=== PATIENT | female | born 1985 | race African-American/Black ===

== ENCOUNTER 2020-11-26 12:18 | Emergency (ER) | payer OTHER, SELFPAY ==
--- NOTE | ~2020-11-26 | XR_ITS ---
XR hand RT min 3V DATE: 11/26/2020 14:26 INDICATION: Redness, swelling, pain of right first digit for 4 days. No known injury. TECHNIQUE: 3 views of right hand COMPARISON: None FINDINGS: No fracture or dislocation, periosteal reaction or bone destruction. No radiopaque foreign body is detected. IMPRESSION: No significant bony abnormality Reviewed, dictated and finalized at location A.
[2020-11-26 12:43] VITALS: BP 119/78; PULSE 66; RESP 18; TEMP 37.2; O2SAT 99
[2020-11-26] MEDS: HYDROcodone/acetaminophen (*CRX) 5-325 MG TABLET 1 TAB PO (14:45)
--- NOTE | 2020-11-26 15:37 | ED.GENADULT ---
HPI - General Adult General Chief complaint: Skin/Abscess/Foreign Body Stated complaint: infection to right thumb Time Seen by Provider: 11/26/20 12:46 Source: patient Mode of arrival: ambulatory Limitations: no limitations History of Present Illness HPI narrative: Patient presents with chief complaint of swelling and erythema to the distal aspect of her right thumb that began on Friday. Patient reports that she has not had 1 of these infections in about any year but for the 4 years prior to that she would have them repeatedly. Patient denies a known history of MRSA. Patient denies any fever, chills, nausea, vomiting, diarrhea. Patient denies any allergies to any antibiotics. Related Data Allergies Allergy/AdvReac Type Severity Reaction Status Date / Time No Known Allergies Allergy Verified 11/26/20 12:48 Review of Systems Review of Systems: CONSTITUTIONAL: Denies fever, chills, or sweats. EYES: Denies visual changes, redness, or discharge. ENT: Denies rhinorrhea, congestion, sore throat, or otalgia. CARDIOVASCULAR: Denies chest pain, palpitations, or edema. RESPIRATORY: Denies cough or dyspnea. GASTROINTESTINAL: Denies abdominal pain, nausea, vomiting, or diarrhea. GENITOURINARY: Denies dysuria or hematuria. SKIN: Reports swelling denies rash or itching. MUSCULOSKELETAL: Denies back pain, joint pain, or myalgia. NEUROLOGIC: Denies headache, numbness, dizziness, or weakness. PSYCHIATRIC: Denies anxiety or depression. Exam Narrative: GENERAL: Well-appearing, well-nourished, and in no acute distress. HEAD: Normocephalic, atraumatic. EYES: PERRLA and EOMI. CHEST: Clear to auscultation. No respiratory distress. No wheezes rales or rhonchi HEART: Regular rate and rhythm. No murmur heard. Normal peripheral pulses. EXTREMITIES: Normal range of motion. No edema. SKIN: Paronychia noted to the nailbed of the right first digit. There is also swelling around the thumb into the pad. Patient able to flex and extend the interphalangeal joint and proximal phalangeal joint. warm, dry, no rash. NEURO: No focal deficits. Alert and oriented x3. PSYCH: Normal mood and affect. Course Vital Signs Vital signs: Vital Signs Temperature 98.9 F 11/26/20 12:43 Pulse Rate 66 11/26/20 12:43 Respiratory Rate 18 11/26/20 12:43 Blood Pressure 119/78 11/26/20 12:43 Pulse Oximetry 99 11/26/20 12:43 Temperature 98.9 F 11/26/20 12:43 Pulse Rate 66 11/26/20 12:43 Respiratory Rate 18 11/26/20 12:43 Blood Pressure 119/78 11/26/20 12:43 Pulse Oximetry 99 11/26/20 12:43 Procedures Abscess I/D hand: Side (if applicable): right Local Anesthetic: lidocaine 1% Amount of anesthesia used (mL): 1 Technique: incised with #11 blade Irrigation: Yes Packing used?: none I&D Results: Pus Abcess I&D Additional Comments: It seemed that there was also a secondary abscess near the pad of the right thumb however upon attempting incision and drainage there was no pus expressed. There is induration in the area. Medical Decision Making MDM Narrative Medical decision making narrative: Discussed with Dr. Becerra. He states to refer the patient to plastics to make sure she does not have a pulp infection and to discharge her on Augmentin. Patient has been updated on her Tdap. X-ray does not show any degeneration of the bone. Patient is able to flex and extend at the joints. Patient was given [place] for pain control as she states the pain is intense. Patient does not have any signs of fever or systemic infection. Wound cultureD. Vital Signs Vital Signs: Vital Signs Temperature 98.9 F 11/26/20 12:43 Pulse Rate 66 11/26/20 12:43 Respiratory Rate 11/26/20 12:43 Blood Pressure 119/78 11/26/20 12:43 Pulse Oximetry 99 11/26/20 12:43 Temperature 98.9 F 11/26/20 12:43 Pulse Rate 66 11/26/20 12:43 Respiratory Rate 11/26/20 12:43 Blood Pressure 119/78 09
[2020-11-26 15:57] VITALS: BP 119/78; PULSE 65; TEMP 37.2; O2SAT 100
[2020-11-26] MEDS: TETANUS,DIPHTHERIA,AC PERTUSSIS ADULT (0.5 ML) BOOSTRIX IM (16:06)
[2020-11-26 16:15] VITALS: BP 119/78; PULSE 65; RESP 18; TEMP 37.2; O2SAT 100
== END 2020-11-26 16:15 | disposition home or self-care (01) ==
PROVIDERS: Emergency Provider Family Medicine; PCP Emergency Medicine
DX: L03.011 Cellulitis of right finger (principal); Z23 Encounter for immunization
CPT/HCPCS: 26010; 73130; 87070; 87077; 87186; 87205; 90471; 90715; 99283; A9270

== ENCOUNTER 2021-12-18 15:00 | Inpatient (IN) | payer OTHER, SELFPAY ==
[2021-12-18] VITALS (9 sets, daily range): BP systolic 98–123; BP diastolic 54–76; PULSE 75–98; RESP 16; TEMP 37.1; O2SAT 94–100; BMI 21.7
--- NOTE | ~2021-12-18 | CT_ITS ---
EXAMINATION: CT abdomen pelvis w con DATE: 12/18/2021 19:11 INDICATION: back pain, UTI TECHNIQUE: Computed tomography (CT) of the abdomen and pelvis was performed with 100 mL Omnipaque-350 intravenous contrast. Automated exposure control and iterative reconstruction technique were employe d. The dose-length product was 278.17 mGy-cm. COMPARISON: None. FINDINGS: Lower thorax: Unremarkable Liver: Normal. Biliary/Gallbladder: Gallbladder is normal. No bile duct dilation. Pancreas: No mass or duct dilation. Spleen: Normal. Adrenals:No mass. Kidneys: Irregular 2.7 x 1.4 x 1.8 cm cystic structure in the right upper pole with adjacent calcific ation or surgical clips and mild adjacent inflammatory change. Right lower pole AML. Left middle pole cyst. The proximal ureters are poorly visualized. GI tract: No small or large bowel dilation. Normal appendix. Mesentery/Peritoneum: No ascites, mass, or free air. Retroperitoneum: No mass. Pelvis: Bladder wall thickening in a partially distended bladder. Distal ureters are poorly visualize d. Mild volume free pelvic fluid. Remaining pelvic organs are within normal limits. Soft Tissues: Soft tissues and body wall unremarkable. Bones: No acute osseous finding. IMPRESSION: 2.7 cm cystic right upper pole lesion, may represent early renal abscess, in the appropriate clinical context. Lateral thickening may be due to lack of distention or cystitis. Reviewed, dictated and finalized at location K. IMPRESSION: 2.7 cm cystic right upper pole lesion, may represent early renal abscess, in th e appropriate clinical context. Lateral thickening may be due to lack of disten tion or cystitis.
--- NOTE | ~2021-12-18 | US_ITS ---
EXAMINATION: US pelvic complete w TV DATE: 12/18/2021 18:34 INDICATION: vaginal bleeding TECHNIQUE: Multiple transabdominal and endovaginal sonographic images of the pelvis were obtained. COMPARISON: None. FINDINGS: Uterus: 8.5 x 3.4 x 6.6 cm. Retroflexed uterus. Endometrial complex measures 2 mm. Right Ovary: 3.7 x 1.7 x 3.5 cm. Vascular flow is present. 1.1 cm simple cyst. Left Ovary: 2.5 x 1.2 x 2.2 cm. Vascular flow is present. There is minimal free fluid in the pelvis. IMPRESSION: Normal pelvic sonogram findings. Reviewed, dictated and finalized at location K.
--- NOTE | ~2021-12-18 | CT_ITS ---
EXAMINATION: CT abdomen pelvis w con DATE: 12/20/2021 07:51 INDICATION: Right kidney abscess. TECHNIQUE: Computed tomography (CT) of the abdomen and pelvis was performed with 100 mL Omnipaque 350 intravenous contrast. Automated exposure control and iterative reconstruction technique were employe d. The dose-length product was 239.98 mGy-cm. COMPARISON: CT abdomen and pelvis 12/18/2021 FINDINGS: The visualized portions of the lung bases demonstrate mild atelectasis. There is a small ri ght pleural effusion. The heart size is normal. No pericardial effusion. The liver is normal. The gal lbladder is distended, likely secondary to fasting. The spleen, pancreas, and adrenal glands are norm al. There is approximately 3 stones in right kidney measuring up to 4 mm. There is a 2.6 x 1.3 cm cys t with hypodense margin in right kidney, consistent with abscess. There is stranding in the adjacent perinephric fat. There are simple cysts in the kidneys measuring up to 10 mm on the left. There are n o dilated loops of bowel. The appendix is not visualized. There is physiologic fluid in the pelvis. T here is mild lumbar spondylosis. IMPRESSION: 1. Stable 2.6 cm cystic mass in right kidney, consistent with abscess. 2. Nonobstructing right kidney stones. Reviewed, dictated and finalized at location A.
--- NOTE | ~2021-12-18 | CT_ITS ---
EXAMINATION: CT guide absc cath placement DATE: 12/21/2021 15:28 INDICATION: Right kidney abscess. TECHNIQUE: The procedure including the risks, benefits, and alternatives was discussed with the patie nt. Risks discussed included bleeding and infection. The patient understood the risks and benefits an d agreed to proceed. The patient was confirmed to be receiving appropriate antibiotic coverage. The skin overlying the abdomen was prepped and draped in usual sterile fashion. Anesthetic was administe red with 1% lidocaine subcutaneously. An 18 gauge trochar needle was inserted into the right kidney a bscess with CT guidance. The needle was exchanged over a wire for 6 [place] and 8 [place] dilators and then for an 8.5 [place] pigtail catheter. The catheter was stitched to the skin, and a sterile dressin g was applied. The mA was adjusted according to patient size. Iterative reconstruction technique was employed. The dose-length product was 178.30 mGy-cm. There were no immediate complications. FINDINGS: CT images demonstrate the catheter within the right kidney abscess. 4 mL fluid was aspirate d for testing. IMPRESSION: 1. Successful CT-guided right kidney abscess drainage. 2. 4 mL opaque, urias fluid was sent for aerobic and anaerobic cultures. Reviewed, dictated and finalized at location A.
--- NOTE | ~2021-12-18 | XR_ITS ---
EXAMINATION: XR chest 2V Exam Date/Time: 12/18/2021 19:08 CDT HISTORY: left shoulder pain, ACS rule out. no cardiac hx Comparison: None available. RESULT: Lines, tubes, and devices: None. Lungs and pleura: Clear. Cardiomediastinal silhouette: Normal. Other: No acute osseous or upper abdominal finding. IMPRESSION: No acute cardiopulmonary process. Reviewed, dictated and finalized at location K.
[2021-12-18 15:40] LABS: Basophils Percent Auto 0.2 % (0.2-1.2); Eosinophils Absolute Auto 0.1 K/mm3 (0-0.3); Eosinophils Percent Auto 0.6 % (0-4.4); Immature Granulocyte Absolute 0.03 K/mm3 (0.00-0.031); Immature Granulocyte Percent A 0.3 % (0-0.5); Lymphocytes Absolute Auto 0.89 K/mm3 (0.9-3.2); Lymphocytes Percent Auto 10.4 % (18.3-44.2); Mean Corpuscular HGB Conc 32.4 g/dl (32-36); Mean Corpuscular Hemoglobin 27.5 pg (26-34); Mean Corpuscular Volume 84.9 fl (80-100); Mean Platelet Volume 11.1 fl (7.4-10.4); Monocytes Absolute Auto 0.7 K/mm3 (0.1-0.6); Monocytes Percent Auto 8.6 % (2.6-8.5); Neutrophils Absolute Auto 6.9 K/mm3 (1.3-6.7); Neutrophils Percent Auto 79.9 % (45.5-73.1); Platelet Count Result 205 k/mm3 (150-375); Red Blood Count 4.36 M/mm3 (4.2-5.4); Red Cell Distribution Width 13.1 % (11.5-14.5); White Blood Count 8.6 K/mm3 (4.5-10.0)
[2021-12-18 15:49] LABS: Alanine Aminotransferase 18 U/L (6-35); Alkaline Phosphatase 53 U/L (38-126); Anion Gap 7 mmol/L (8-16); Aspartate Amino Transferase 29 U/L (14-36); Bilirubin,Total 0.3 mg/dL (0.2-1.3); Blood Urea Nitrogen 13 mg/dL (7-17); Calcium 8.5 mg/dL (8.4-10.2); Carbon Dioxide 24 mmol/L (22-30); Chloride 106 mmol/L (98-107); Estimated CRCL calculation 97 ml/min; Estimated Glomerular Filt Rate > 60; Glucose 99 mg/dL (65-110); Lipase 118 U/L (23-300); Potassium 4.2 mmol/L (3.4-5.0); Sodium 137 mmol/L (137-145)
[2021-12-18 16:01] LABS: Add Urine Microscopic? YES; Appearance Urine Cloudy (Clear); Bacteria Urine Trace /hpf; Bilirubin Urine Negative (Negative); Blood Urine 2+ (Negative); Color Urine Yellow (Yellow); Glucose Urine UA Negative (Negative); Ketones Urine Trace mg/dL (Negative); Leukocyte Esterase Ur 2+ LEU/UL (Negative); Mucus Urine Rare /lpf; Nitrate Urine Positive (Negative); Protein Urine Negative (Negative); Squamous Epithelial Cell Urine Occasional /hpf (Few); Urobilinogen Urine Negative mg/dL (<2.0); WBC Urine >75 /hpf
[2021-12-18 17:17] LABS: Pregnancy On Board Control Positive; Urine Pregnancy Test Negative
--- NOTE | 2021-12-18 17:43 | ED.ABDPAIN ---
HPI - Abdominal Pain General Chief Complaint: Abdominal Pain Stated Complaint: abd pain Time Seen by Provider: 12/18/21 17:43 Source: patient Mode of arrival: ambulatory Limitations: no limitations History of Present Illness HPI narrative: Patient is a 36-year-old female presenting to the emergency department for evaluation of right lower quadrant abdominal pain with radiation up into the left chest and posterior left shoulder. Patient states that she has been uncomfortable throughout the day with significant back pain of the upper and lower spine. She reports intermittent right lower quadrant pain as well as well as urinary frequency. She denies dysuria or hematuria. Patient reports subjective fever and chills. She denies nausea, vomiting, frontal chest pain, palpitations, shortness of breath, cough. Patient denies any rhinorrhea or congestion. She denies history of previous abdominal surgeries or illnesses. She does have a history of section in 2018. Patient denies any aggravating or relieving symptoms. Pain has been present over the past 48 hours and worsening. Patient does have a history of urinary tract infection in the past. She denies vaginal discharge or bleeding. Related Data Allergies Allergy/AdvReac Type Severity Reaction Status Date / Time No Known Allergies Allergy Verified 11/26/20 12:48 Review of Systems Review of Systems: CONSTITUTIONAL: Reports fever and chills EYES: Denies visual changes, redness, or discharge. ENT: Denies rhinorrhea, congestion, sore throat, or otalgia. CARDIOVASCULAR: Denies chest pain, palpitations, or edema. RESPIRATORY: Denies cough or dyspnea. GASTROINTESTINAL: Reports right lower quadrant abdominal pain, denies nausea or vomiting, denies diarrhea GENITOURINARY: Denies dysuria or hematuria. SKIN: Denies rash or itching. MUSCULOSKELETAL: Reports back pain in the upper and lower back, denies other joint pain, or myalgia. NEUROLOGIC: Denies headache, numbness, or weakness. [facility] Social History Social History Smoking status: Never smoker Alcohol intake: never Substance use: never Living arrangements: with family Gender identity (if verbalized by the patient): Female Exam Narrative: GENERAL: Awake, alert, conversant HEAD: Normocephalic, atraumatic. EYES: PERRLA and EOMI. ENT: Nares clear, no rhinorrhea or epistaxis. Mucous membranes moist. NECK: Supple. No midline cervical pain. CHEST: No respiratory distress, breathing even and non labored HEART: Regular rate, sinus rhythm ABDOMEN:Non distended, mildly tender in the right and left lower quadrant without rebound, rigidity or guarding. Bilateral flank tenderness. Thorax: Midline thoracic and lumbar pain EXTREMITIES: Normal range of motion. No edema. SKIN: Warm, dry, no rash. NEURO:No focal deficits. Alert and oriented x3. Finger to nose intact bilaterally. EOMs intact without nystagmus. No facial droop/asymmetry noted bilaterally. Grimace intact. Intact sensation in face. Hearing intact bilaterally. Shoulder shrug intact. Strength 5/5 bilateral upper extremities. Strength 5/5 bilateral lower extremities. Reflexes 2+ patellar. Heel to plaza intact bilaterally. Ambulatory with a narrow base, steady gait, no ataxia. Course Vital Signs Vital signs: Vital Signs Temperature 37.1 C 12/18/21 15:22 Pulse Rate 98 12/18/21 15:22 Respiratory Rate 16 12/18/21 15:22 Blood Pressure 123/73 12/18/21 15:22 Pulse Oximetry 100 12/18/21 15:22 Temperature 37.1 C 12/18/21 15:22 Pulse Rate 98 12/18/21 15:22 Respiratory Rate 16 12/18/21 15:22 Blood Pressure 123/73 12/18/21 15:22 Pulse Oximetry 100 12/18/21 15:22 MDM - Abdominal Pain MDM Narrative Medical decision making narrative: Patient presenting for evaluation of back pain, no urinary symptoms on review of systems. Vital signs are stable. Patient does have pain throughout
[2021-12-18 19:10] LABS: Troponin I < 0.012 ng/mL (0.000-0.034)
[2021-12-18] MEDS: ACETAMINOPHEN 500 MG TABLET 1000 MG PO (19:27)
[2021-12-18] MEDS: MORPHINE SULFATE (*CRX) 4 MG/ML INJ IV PUSH (19:28)
[2021-12-18] MEDS: SODIUM CHLORIDE 0.9% IV 1,000 ML 999 ML IV CONT (19:31)
[2021-12-18] MEDS: ONDANSETRON INJ 4 MG/2 ML VIAL IV PUSH (19:31)
--- NOTE | 2021-12-18 20:08 | PM.IMHP ---
H&P: HPI History of Present Illness Date/Time: 12/18/21 20:08 Chief Complaint: 36 years old female with no significant past medical history presented to the hospital with right abdominal pain dull in nature worsening gradually radiating to the shoulder and radiating to the back associated with dysuria and frequency patient denies hematuria patient also complained of intermittent chills at the ER CT scan of the abdomen was done shows 2.7 right kidney cyst concerning for abscess urology was consulted patient was started on IV antibiotics patient was admitted to the hospital for further evaluation and treatment Review of Systems Review of Systems: Twelve system review was done negative except [facility] Social History Social History Smoking status: Never smoker Alcohol intake: never Substance use: never Living arrangements: with family Gender identity (if verbalized by the patient): Female Meds Home Medications and Allergies Home Medications Medication Instructions Recorded Confirmed Type amoxicillin 875 mg-potassium 1 tablet PO Q12H #20 tabs 11/26/20 Rx clavulanate 125 mg tablet (Augmentin) hydrocodone 5 mg-acetaminophen 325 1 tablet PO Q8H PRN pain #10 tabs 11/26/20 Rx mg tablet Allergies Allergy/AdvReac Type Severity Reaction Status Date / Time No Known Allergies Allergy Verified 11/26/20 12:48 Vital Signs Vital Signs - 24 hr 12/18/21 15:22 Temperature 98.7 F Pulse Rate 98 Respiratory Rate 16 Blood Pressure 123/73 Pulse Oximetry 100 Exam Narrative: GENERAL: Well appearing, well-nourished, non-toxic, in no acute distress. HEAD: Normocephalic, atraumatic. NECK: Supple. No adenopathy, no masses. RESPIRATORY: Airway patent, respirations nonlabored. Clear to auscultation bilaterally, no rales, rhonchi, wheezing. CARDIOVASCULAR: Regular rate and rhythm without murmurs, rubs, or gallops. Peripheral pulses 2+ and equal bilaterally. ABDOMINAL: Soft, nontender, nondistended, no hepatosplenomegaly. Normoactive BS. MUSCULOSKELETAL: Moves all extremities. Strength/ROM intact without gross deformities or TTP. No edema. No calf tenderness. No chest wall tenderness palpation. SKIN: Warm, dry, normal color. No rashes. NEURO: A&O X3. Moves all extremities. PSYCHIATRIC: Appropriate mood and affect. Normal interaction. H&P: Results Labs Labs: Short CBC 12/18/21 Range/Units 15:34 WBC 8.6 (4.5-10.0) K/mm3 Hgb 12.0 (12.0-15.0) g/dL Hct 37.0 (37.0-47.0) % Plt Count 205 (150-375) k/mm3 BMP 12/18/21 15:34 Sodium 137 Potassium 4.2 Chloride 106 Carbon Dioxide 24 BUN 13 Creatinine 0.60 L Glucose 99 Calcium 8.5 Cardiac Enzymes 12/18/21 Range/Units 15:33 Troponin I < 0.012 (0.000-0.034) ng/mL Liver Function 12/18/21 Range/Units 15:34 Total Bilirubin 0.3 (0.2-1.3) mg/dL AST 29 (14-36) U/L ALT 18 (6-35) U/L Alkaline Phosphatase 53 (38-126) U/L Albumin 4.0 (3.5-5.1) g/dL Urine 12/18/21 Range/Units 15:41 Urine Color Yellow (Yellow) Urine Appearance Cloudy H (Clear) Urine pH 5.0 (5.0-9.0) Ur Specific [place] 1.020 (1.001-1.035) Urine Protein Negative (Negative) mg/dL Urine Glucose (UA) Negative (Negative) mg/dL Assessment and Plan Assessment and plan (1) UTI (urinary tract infection): Code(s): N39.0 - Urinary tract infection, site not specified Status: Acute Assessment and Plan: Will give IV Zosyn follow culture results Reviewed CBC CMP UA (2) Kidney abscess: Code(s): N15.1 - Renal and perinephric abscess Status: Acute Assessment and Plan: Urology consult NPO after midnight except meds (3) Abdominal pain: Code(s): R10.9 - Unspecified abdominal pain Status: Acute Assessment and Plan: Pain control (4) Mechanical deep vein thrombosis (DVT) prophylaxis
[2021-12-18 21:47] LABS: Amphetamine Screen Urine Negative (Negative); Barbiturate Screen Urine Negative (Negative); Benzodiazepines Screen Urine Negative (Negative); Cannabinoid Screen Urine Negative (Negative); Cocaine Screen Urine Negative (Negative); Methadone Screen Urine Negative (Negative); Opiate Screen Urine Negative (Negative); Phencyclidine Screen Urine Negative (Negative)
--- NOTE | 2021-12-18 23:40 | ADMGEN ---
This patient, Palmira Todd, was admitted to 2 Medical Room 250-01. Patient/family oriented to hospital policies and general routines including ID bracelet, bed and alarms, visiting hours, pain management, procedures, bathroom and other care routines, personal items, smoking policy, room service/diet, and visiting hours. Information on how to activate the Rapid Response Team has been discussed. Patient/Family are encouraged to report perceived risks to care and to ask questions if they do not understand what they are told or what they should do.
[2021-12-19] VITALS (9 sets, daily range): BP systolic 103–119; BP diastolic 59–70; PULSE 69–98; RESP 16–21; TEMP 36.6–37.9; O2SAT 94–100
[2021-12-19] MEDS: SODIUM CHLORIDE 0.9% IV 1,000 ML 100 ML IV CONT ×3 (00:09→22:24)
[2021-12-19] MEDS: HYDROcodone/acetaminophen (*CRX) 5-325 MG TABLET 1 TAB PO ×2 (05:18→14:40)
[2021-12-19 05:39] LABS: Alanine Aminotransferase 16 U/L (6-35); Albumin Level 3.5 g/dL (3.5-5.1); Alkaline Phosphatase 54 U/L (38-126); Anion Gap 9 mmol/L (8-16); Aspartate Amino Transferase 22 U/L (14-36); Bilirubin,Total 0.5 mg/dL (0.2-1.3); Blood Urea Nitrogen 10 mg/dL (7-17); Calcium 8.2 mg/dL (8.4-10.2); Carbon Dioxide 20 mmol/L (22-30); Chloride 108 mmol/L (98-107); Estimated CRCL calculation 97 ml/min; Estimated Glomerular Filt Rate > 60; Glucose 75 mg/dL (65-110); Potassium 3.8 mmol/L (3.4-5.0); Sodium 137 mmol/L (137-145)
--- NOTE | 2021-12-19 08:08 | WPDURCON ---
Assessment and Plan Assessment and plan (1) Pyelonephritis: Code(s): N12 - Tubulo-interstitial nephritis, not specified as acute or chronic Status: Acute (2) Kidney abscess: Code(s): N15.1 - Renal and perinephric abscess Status: Acute (3) UTI (urinary tract infection): Code(s): N39.0 - Urinary tract infection, site not specified Status: Acute Plan 36-year-old lady with right pyelonephritis and potential renal abscess versus infected renal cyst. - Await urine cultures. Continue broad-spectrum antibiotics - consider Interventional Radiology drainage if persistent fevers or Persistence/ growth of abscess. likely plan repeat CT scan tomorrow and intervene indicated. Will discuss with interventional radiology potential for drainage Urology Consult Note HPI Date Seen: 12/19/21 Requesting Physician: Hayes Mariee MD Primary Care Provider: Alli Perez MD Consult Narrative Narrative: Palmira Todd is a 36 year old female With 3 day history of right-sided dull pain. Patient experienced fever at home. She presents the emergency department last night. She was found to have fluid collection in right kidney consistent with cyst versus abscess. Patient was admitted for antibiotics. Urology was called. Patient states he has a history of previous urine tract infections with 1 episode of pyelonephritis in the past. She denies previous renal abscesses or other urologic issues. Patient states she has been intermittently febrile. She denies nausea vomiting. She denies chest pain or shortness of breath. Other systems negative [facility] Social History Social History Smoking status: Never smoker Alcohol intake: never Substance use: never Living arrangements: with family Gender identity (if verbalized by the patient): Female Spiritual care concerns: No Meds Home Medications and Allergies Home Medications Medication Instructions Recorded Confirmed Type No Home Medications 12/18/21 12/18/21 History Allergies Allergy/AdvReac Type Severity Reaction Status Date / Time No Known Allergies Allergy Verified 11/26/20 12:48 Vital Signs Vital Signs - 24 hr 12/18/21 15:22 12/18/21 20:35 12/18/21 23:12 Temperature 37.1 C Pulse Rate 98 80 75 Respiratory Rate 16 16 16 Blood Pressure 123/73 105/65 110/76 Pulse Oximetry 100 97 100 Oxygen Delivery 12/18/21 20:37 12/18/21 20:38 12/18/21 20:46 Temperature Pulse Rate Respiratory Rate Blood Pressure 105/65 105/65 116/69 Pulse Oximetry 97 97 96 Oxygen Delivery 12/18/21 21:01 12/18/21 21:16 12/18/21 21:31 Temperature Pulse Rate Respiratory Rate Blood Pressure 98/54 L 105/59 L 104/54 L Pulse Oximetry 96 98 94 Oxygen Delivery 12/18/21 23:45 12/19/21 00:37 12/19/21 00:00 Temperature 36.8 C Pulse Rate 69 69 Respiratory Rate 21 H Blood Pressure 119/70 Pulse Oximetry 100 Oxygen Delivery Room Air 12/19/21 04:00 12/19/21 06:14 Temperature 37.9 C H Pulse Rate 79 97 Respiratory Rate 21 H Blood Pressure 113/65 Pulse Oximetry 100 Oxygen Delivery Results Labs CBC & Chem 7: 12/18/21 15:34 12/19/21 05:00 Labs: Short CBC 12/18/21 Range/Units 15:34 WBC 8.6 (4.5-10.0) K/mm3 Hgb 12.0 (12.0-15.0) g/dL Hct 37.0 (37.0-47.0) % Plt Count 205 (150-375) k/mm3 BMP 12/18/21 12/19/21 15:34 05:00 Sodium 137 137 Potassium 4.2 3.8 Chloride 106 108 H Carbon Dioxide 24 20 L BUN 13 10 Creatinine 0.60 L 0.60 L Glucose 99 75 Calcium 8.5 8.2 L Cardiac Enzymes 12/18/21 Range/Units 15:33 Troponin I < 0.012 (0.000-0.034) ng/mL Liver Function 12/18/21 12/19/21 Range/Units 15:34 05:00 Total Bilirubin 0.3 0.5 (0.2-1.3) mg/dL AST 29 22 (14-36) U/L ALT 18 16 (6-35) U/L Alkaline Phospha
--- NOTE | 2021-12-19 15:23 | PM.IMPN ---
Progress Note: A&P Assessment and Plan (1) UTI (urinary tract infection): Code(s): N39.0 - Urinary tract infection, site not specified Status: Acute Assessment and Plan: Will give IV Zosyn follow culture results Reviewed CBC CMP UA 12/19/2021 interval history: 36-year-old female with pyelonephritis, and 2.7 right kidney cyst concerning for infection abscess seen by Urology recommended further evaluation with CT scan of the abdomen and possible placement drain which is scheduled for tomorrow, urine and blood culture are pending patient is being treated Zosyn will continue to monitor and further recommendation to follow. (2) Kidney abscess: Code(s): N15.1 - Renal and perinephric abscess Status: Acute Assessment and Plan: Urology consult NPO after midnight except meds (3) Abdominal pain: Code(s): R10.9 - Unspecified abdominal pain Status: Acute Assessment and Plan: Pain control (4) Mechanical deep vein thrombosis (DVT) prophylaxis in place: Code(s): Z78.9 - Other specified health status Status: Acute Assessment and Plan: Mechanical DVT prophylaxis pending urology evaluation consider Lovenox if no surgical intervention and prolonged hospitalization Subjective Date/time seen: 12/19/21 15:23 Chief Complaint: HPI: 36 years old female with no significant past medical history presented to the hospital with right abdominal pain dull in nature worsening gradually radiating to the shoulder and radiating to the back associated with dysuria and frequency patient denies hematuria patient also complained of intermittent chills at the ER CT scan of the abdomen was done shows 2.7 right kidney cyst concerning for abscess urology was consulted patient was started on IV antibiotics patient was admitted to the hospital for further evaluation and treatment. 12/19/2021 interval history: 36-year-old female with pyelonephritis, and 2.7 right kidney cyst concerning for infection abscess seen by Urology recommended further evaluation with CT scan of the abdomen and possible placement drain which is scheduled for tomorrow, urine and blood culture are pending patient is being treated Zosyn will continue to monitor and further recommendation to follow. Review of Systems Review of Systems: Twelve system review was done negative except above Exam Narrative: Patient is comfortable, NAD HEENT: eyes are clear and none icteric LUNGS: normal respiratory effort ABD: not distended Lower extremities: no edema SKIN: nonjaundiced Neuro: grossly intact. Objective Data Vital Signs Vital Signs: Vital Signs - 24 hr 12/18/21 20:35 12/18/21 23:12 12/18/21 20:37 Temperature Pulse Rate 80 75 Respiratory Rate 16 16 Blood Pressure 105/65 110/76 105/65 Pulse Oximetry 97 100 97 Oxygen Delivery 12/18/21 20:38 12/18/21 20:46 12/18/21 21:01 Temperature Pulse Rate Respiratory Rate Blood Pressure 105/65 116/69 98/54 L Pulse Oximetry 97 96 96 Oxygen Delivery 12/18/21 21:16 12/18/21 21:31 12/18/21 23:45 Temperature Pulse Rate Respiratory Rate Blood Pressure 105/59 L 104/54 L Pulse Oximetry 98 94 Oxygen Delivery Room Air 12/19/21 00:37 12/19/21 00:00 12/19/21 04:00 Temperature 98.3 F Pulse Rate 69 69 79 Respiratory Rate 21 H Blood Pressure 119/70 Pulse Oximetry 100 Oxygen Delivery 12/19/21 06:14 12/19/21 08:00 12/19/21 08:00 Temperature 100.2 F H Pulse Rate 97 73 Respiratory Rate 21 H Blood Pressure 113/65 Pulse Oximetry 100 Oxygen Delivery Room Air 12/19/21 13:46 12/19/21 12:00 Temperature 98 F Pulse Rate 93 90 Respiratory Rate 16 Blood Pressure 115/70 Pulse Oximetry 99 Oxygen Delivery Intake/Output Intake/Output: Intake & Output 12/16/21 12/17/21 12/18/21 12/19/21 23:59 23:59 23:59 23:59 Intake Total 1050 1980 Output Total 400 Balance 1050 1580 Meds/Results
[2021-12-19 16:17] LABS: Basophils Percent Auto 0.1 % (0.2-1.2); Eosinophils Percent Auto 0.3 % (0-4.4); Hematocrit 32.9 % (37.0-47.0); Hemoglobin 10.7 g/dL (12.0-15.0); Immature Granulocyte Absolute 0.03 K/mm3 (0.00-0.031); Immature Granulocyte Percent A 0.3 % (0-0.5); Lymphocytes Percent Auto 11.5 % (18.3-44.2); Mean Corpuscular HGB Conc 32.5 g/dl (32-36); Mean Corpuscular Hemoglobin 27.2 pg (26-34); Mean Corpuscular Volume 83.5 fl (80-100); Mean Platelet Volume 11.3 fl (7.4-10.4); Monocytes Absolute Auto 0.8 K/mm3 (0.1-0.6); Monocytes Percent Auto 9.7 % (2.6-8.5); Neutrophils Absolute Auto 6.8 K/mm3 (1.3-6.7); Neutrophils Percent Auto 78.1 % (45.5-73.1); Platelet Count Result 186 k/mm3 (150-375); Red Blood Count 3.94 M/mm3 (4.2-5.4); White Blood Count 8.7 K/mm3 (4.5-10.0)
[2021-12-19] MEDS: ACETAMINOPHEN 325 MG TABLET 650 MG PO (22:25)
[2021-12-20] VITALS (8 sets, daily range): BP systolic 100–124; BP diastolic 56–72; PULSE 71–85; RESP 18; TEMP 37.2–38.1; O2SAT 100
[2021-12-20 06:16] LABS: Alanine Aminotransferase 14 U/L (6-35); Albumin Level 3.2 g/dL (3.5-5.1); Alkaline Phosphatase 50 U/L (38-126); Anion Gap 7 mmol/L (8-16); Aspartate Amino Transferase 19 U/L (14-36); Bilirubin,Total 0.3 mg/dL (0.2-1.3); Blood Urea Nitrogen 5 mg/dL (7-17); Calcium 7.9 mg/dL (8.4-10.2); Carbon Dioxide 23 mmol/L (22-30); Chloride 108 mmol/L (98-107); Estimated CRCL calculation 97 ml/min; Estimated Glomerular Filt Rate > 60; Glucose 92 mg/dL (65-110); Potassium 3.7 mmol/L (3.4-5.0); Sodium 138 mmol/L (137-145)
[2021-12-20] MEDS: SODIUM CHLORIDE 0.9% IV 1,000 ML 100 ML IV CONT ×2 (10:43→21:16)
--- NOTE | 2021-12-20 11:42 | WPDUROPN2 ---
Progress Note: A&P Assessment and Plan (1) Pyelonephritis: Code(s): N12 - Tubulo-interstitial nephritis, not specified as acute or chronic Status: Acute (2) Kidney abscess: Code(s): N15.1 - Renal and perinephric abscess Status: Acute Assessment and Plan: We discussed placing a drain in IR for furthered improvement of pain and infection, however since she has pain improvement today on antibiotics, she elects to stay on antibiotics and see how she does overnight. Her fevers remain low grade and there was no significant change in the abscess on her repeat CT scan today. Will plan to just treat with IV antibiotics as long as her fever resolves and pain continues to improve, otherwise if she worsens she will need a drain placed in the right kindey by IR. If she does well and can be discharged home fever free, she should stay on antibiotics x2 weeks and f/u in the office with a CT scan repeat in 1 month. (3) Abdominal pain: Code(s): R10.9 - Unspecified abdominal pain Status: Acute Subjective Subjective Date/Time Seen: 12/20/21 11:42 Patient with persistent low grade fevers and right renal abscess, initially measuring 2.7cm on CT. She states her pain is slightly improved today on IV antibiotics and WBC is stable. Review of Systems Cardiovascular: Cardiovascular: Denies chest pain Respiratory: Respiratory: Reports no additional respiratory complaints Gastrointestinal: Gastrointestinal: Reports abdominal pain, Denies nausea and Denies vomiting Genitourinary: Genitourinary: Denies hematuria, Denies dysuria, Denies pelvic pain and Denies urinary urgency Exam Const: General: comfortable Resp: Effort & Inspection: normal respiratory effort Cardio: Rate: regular rate GI: GI Palp: Yes Soft to palpation and Yes Tenderness to palpation present (GI) (RLQ) : General: Yes CVA tenderness on the right; not on the left Extrem: Right lower extremity: no edema Left lower extremity: no edema Objective Data Vital Signs Vital Signs: Vital Signs - 24 hr 12/19/21 13:46 12/19/21 12:00 12/19/21 16:00 Temperature 98 F Pulse Rate 93 90 98 Respiratory Rate 16 Blood Pressure 115/70 Pulse Oximetry 99 Oxygen Delivery 12/19/21 20:00 12/19/21 20:00 12/19/21 20:00 Temperature 98.5 F Pulse Rate 74 88 Respiratory Rate 18 Blood Pressure 103/59 L Pulse Oximetry 94 Oxygen Delivery Room Air 12/20/21 03:55 12/20/21 00:00 12/20/21 04:00 Temperature 99 F Pulse Rate 79 75 81 Respiratory Rate 18 Blood Pressure 100/56 L Pulse Oximetry 100 Oxygen Delivery 12/20/21 08:00 Temperature Pulse Rate 79 Respiratory Rate Blood Pressure Pulse Oximetry Oxygen Delivery Intake/Output Intake/Output: Intake & Output 12/17/21 12/18/21 12/19/21 12/20/21 23:59 23:59 23:59 23:59 Intake Total 1050 3870 1490 Output Total 1700 100 Balance 1050 2170 1390 Meds/Results Medications: Active Medications Generic Name Dose Route Start Last Admin Trade Name Freq PRN Reason Stop Dose Admin Acetaminophen 650 mg 12/18/21 20:05 12/19/21 22:25 Acetaminophen 325 Mg Tablet PO 650 mg Q6H PRN Administration Moderate pain Hydrocodone Bitart/Acetaminophen 1 tab 12/18/21 20:05 12/19/21 14:40 Hydrocodone/Acetaminophen (*Crx) 5-325 Mg Tablet PO 1 tab Q4H PRN Administration Moderate Pain (4-6) Bisacodyl 5 mg 12/18/21 20:05 Bisacodyl 5 Mg Tablet Ec PO DAILY PRN Constipation Sodium Chloride 1,000 mls @ 100 mls/hr 12/18/21 20:05 12/20/21 10:43 Normal Saline Iv IV CONT 100 mls/hr .Q10H BRET Administration Piperacillin/Tazobactam/Dextrose 3.375 gm in 50 mls @ 100 mls/hr 12/19/21 06:00 12/20/21 06:35 Zosyn 3.375 Gm/D5w 50ml Pm IVPB Infused Q8H BRET Infusion Magnesium Hydroxide 30 ml 12/18/21 20:05 Magnesium Hydroxide Susp 30 Ml Udc PO DAILY PRN Constipation Melatonin 3 mg
--- NOTE | 2021-12-20 12:19 | PM.IMPN ---
Progress Note: A&P Assessment and Plan (1) UTI (urinary tract infection): Code(s): N39.0 - Urinary tract infection, site not specified Status: Acute Assessment and Plan: Will give IV Zosyn follow culture results Reviewed CBC CMP UA 12/20/2021 interval history: 36-year-old female with pyelonephritis, and 2.7 cm right kidney cyst concerning for infection abscess seen by Urology recommended further evaluation with CT scan of the abdomen, the CT scan today showed 2.6 cm and concerning for abscess, urine culture is growing E coli, pansensitive, will continue Zosyn, and blood culture is pending patient is being treated, patient fever is trending down and for last 24hrs has low grade fever, pain has improved, seen by urologist since her clinical symptoms are improving, patient may not need drain, will continue IV abx, will continue to monitor and further recommendation to follow. (2) Kidney abscess: Code(s): N15.1 - Renal and perinephric abscess Status: Acute Assessment and Plan: Urology consult NPO after midnight except meds (3) Abdominal pain: Code(s): R10.9 - Unspecified abdominal pain Status: Acute Assessment and Plan: Pain control (4) Mechanical deep vein thrombosis (DVT) prophylaxis in place: Code(s): Z78.9 - Other specified health status Status: Acute Assessment and Plan: Mechanical DVT prophylaxis pending urology evaluation consider Lovenox if no surgical intervention and prolonged hospitalization Subjective Date/time seen: 12/20/21 12:19 12/20/2021 interval history: 36-year-old female with pyelonephritis, and 2.7 cm right kidney cyst concerning for infection abscess seen by Urology recommended further evaluation with CT scan of the abdomen, the CT scan today showed 2.6 cm and concerning for abscess, urine culture is growing E coli, pansensitive, will continue Zosyn, and blood culture is pending patient is being treated, patient fever is trending down and for last 24hrs has low grade fever, pain has improved, seen by urologist since her clinical symptoms are improving, patient may not need drain, will continue IV abx, will continue to monitor and further recommendation to follow. Exam Narrative: Patient is comfortable, NAD HEENT: eyes are clear and none icteric LUNGS: normal respiratory effort ABD: not distended Lower extremities: no edema SKIN: nonjaundiced Neuro: grossly intact. Objective Data Vital Signs Vital Signs: Vital Signs - 24 hr 12/19/21 13:46 12/19/21 16:00 12/19/21 20:00 Temperature 98 F 98.5 F Pulse Rate 93 98 74 Respiratory Rate 16 18 Blood Pressure 115/70 103/59 L Pulse Oximetry 99 94 Oxygen Delivery 12/19/21 20:00 12/19/21 20:00 12/20/21 03:55 Temperature 99 F Pulse Rate 88 79 Respiratory Rate 18 Blood Pressure 100/56 L Pulse Oximetry 100 Oxygen Delivery Room Air 12/20/21 00:00 12/20/21 04:00 12/20/21 08:00 Temperature Pulse Rate 75 81 79 Respiratory Rate Blood Pressure Pulse Oximetry Oxygen Delivery Intake/Output Intake/Output: Intake & Output 12/17/21 12/18/21 12/19/21 12/20/21 23:59 23:59 23:59 23:59 Intake Total 1050 3870 1490 Output Total 1700 100 Balance 1050 2170 1390 Meds/Results Medications: Active Medications Generic Name Dose Route Start Last Admin Trade Name Freq PRN Reason Stop Dose Admin Acetaminophen 650 mg 12/18/21 20:05 12/19/21 22:25 Acetaminophen 325 Mg Tablet PO 650 mg Q6H PRN Administration Moderate pain Hydrocodone Bitart/Acetaminophen 1 tab 12/18/21 20:05 12/19/21 14:40 Hydrocodone/Acetaminophen (*Crx) 5-325 Mg Tablet PO 1 tab Q4H PRN Administration Moderate Pain (4-6) Bisacodyl 5 mg 12/18/21 20:05 Bisacodyl 5 Mg Tablet Ec PO DAILY PRN Constipation Sodium Chloride 1,000 mls @ 100 mls/hr 12/18/21 20:05 12/20/21 10:43 Normal Saline Iv IV CONT 100 mls/hr
[2021-12-20] MEDS: HYDROcodone/acetaminophen (*CRX) 5-325 MG TABLET 1 TAB PO (16:48)
[2021-12-20 18:37] LABS: Basophils Percent Auto 0.2 % (0.2-1.2); Eosinophils Percent Auto 0.3 % (0-4.4); Hematocrit 32.4 % (37.0-47.0); Hemoglobin 10.5 g/dL (12.0-15.0); Immature Granulocyte Absolute 0.05 K/mm3 (0.00-0.031); Immature Granulocyte Percent A 0.6 % (0-0.5); Lymphocytes Absolute Auto 1.26 K/mm3 (0.9-3.2); Lymphocytes Percent Auto 14.6 % (18.3-44.2); Mean Corpuscular HGB Conc 32.4 g/dl (32-36); Mean Corpuscular Hemoglobin 27.1 pg (26-34); Mean Corpuscular Volume 83.5 fl (80-100); Mean Platelet Volume 11.6 fl (7.4-10.4); Monocytes Percent Auto 11.1 % (2.6-8.5); Neutrophils Absolute Auto 6.3 K/mm3 (1.3-6.7); Neutrophils Percent Auto 73.2 % (45.5-73.1); Platelet Count Result 217 k/mm3 (150-375); Red Blood Count 3.88 M/mm3 (4.2-5.4); Red Cell Distribution Width 12.9 % (11.5-14.5); White Blood Count 8.7 K/mm3 (4.5-10.0)
[2021-12-21 04:03] VITALS: BP 121/72; PULSE 93; RESP 18; TEMP 37.3; O2SAT 98
[2021-12-21 06:39] LABS: Alanine Aminotransferase 14 U/L (6-35); Albumin Level 3.2 g/dL (3.5-5.1); Alkaline Phosphatase 45 U/L (38-126); Anion Gap 11 mmol/L (8-16); Aspartate Amino Transferase 18 U/L (14-36); Bilirubin,Total 0.3 mg/dL (0.2-1.3); Blood Urea Nitrogen 5 mg/dL (7-17); Carbon Dioxide 22 mmol/L (22-30); Chloride 106 mmol/L (98-107); Estimated CRCL calculation 97 ml/min; Estimated Glomerular Filt Rate > 60; Glucose 89 mg/dL (65-110); Potassium 3.2 mmol/L (3.4-5.0); Sodium 139 mmol/L (137-145)
[2021-12-21] MEDS: SODIUM CHLORIDE 0.9% IV 1,000 ML 100 ML IV CONT ×2 (08:10→19:14)
[2021-12-21] MEDS: POTASSIUM CHLORIDE 20 MEQ TABLET 40 MEQ PO (08:11)
[2021-12-21 10:12] VITALS: O2SAT 96
[2021-12-21 11:36] LABS: INR 1.1
[2021-12-21 11:37] LABS: Partial Thromboplastin Time 36.1 SECONDS (22.3-36.8)
--- NOTE | 2021-12-21 12:42 | WPDUROPN2 ---
Progress Note: A&P Assessment and Plan (1) Pyelonephritis: Code(s): N12 - Tubulo-interstitial nephritis, not specified as acute or chronic Status: Acute Assessment and Plan: Culture grew E-Coli sensitive to Zosyn, continue Zosyn. (2) Kidney abscess: Code(s): N15.1 - Renal and perinephric abscess Status: Acute Assessment and Plan: Will plan to proceed with drain placement in IR d/t continued fevers and pain. We discussed the procedure and she agrees to proceed. Obtain consent. Subjective Subjective Date/Time Seen: 12/21/21 12:42 The patient continues to have a low grade fever and right flank pain despite several days of IV antibiotics. Her culture grew E-Coli sensitive to Zosyn. Review of Systems Cardiovascular: Cardiovascular: Denies chest pain Respiratory: Respiratory: Reports no additional respiratory complaints Gastrointestinal: Gastrointestinal: Reports abdominal pain, Denies nausea and Denies vomiting Genitourinary: Genitourinary: Denies dysuria, Denies flank pain, Denies urinary incontinence, Denies urinary hesitancy and Denies urinary urgency Exam Const: General: cooperative Resp: Effort & Inspection: normal respiratory effort Cardio: Rate: regular rate GI: GI Palp: Yes Soft to palpation and Yes Tenderness to palpation present (GI) (RLQ) : General: Yes no CVA tenderness (Right) Objective Data Vital Signs Vital Signs: Vital Signs - 24 hr 12/20/21 14:12 12/20/21 20:04 12/20/21 20:00 Temperature 100.6 F H 98.9 F Pulse Rate 79 71 71 Respiratory Rate 18 18 18 Blood Pressure 124/72 100/69 Pulse Oximetry 100 100 100 Oxygen Delivery Room Air 12/21/21 04:03 12/21/21 08:10 12/21/21 10:12 Temperature 99.2 F Pulse Rate 93 Respiratory Rate 18 Blood Pressure 121/72 Pulse Oximetry 98 96 Oxygen Delivery Room Air Room Air Intake/Output Intake/Output: Intake & Output 12/18/21 12/19/21 12/20/21 12/21/21 23:59 23:59 23:59 23:59 Intake Total 1050 3870 3720 1620 Output Total 1700 1200 1300 Balance 1050 2170 2520 320 Meds/Results Medications: Active Medications Generic Name Dose Route Start Last Admin Trade Name Freq PRN Reason Stop Dose Admin Acetaminophen 650 mg 12/18/21 20:05 12/19/21 22:25 Acetaminophen 325 Mg Tablet PO 650 mg Q6H PRN Administration Moderate pain Hydrocodone Bitart/Acetaminophen 1 tab 12/18/21 20:05 12/20/21 16:48 Hydrocodone/Acetaminophen (*Crx) 5-325 Mg Tablet PO 1 tab Q4H PRN Administration Moderate Pain (4-6) Bisacodyl 5 mg 12/18/21 20:05 Bisacodyl 5 Mg Tablet Ec PO DAILY PRN Constipation Sodium Chloride 1,000 mls @ 100 mls/hr 12/18/21 20:05 12/21/21 08:10 Normal Saline Iv IV CONT 100 mls/hr .Q10H BRET Administration Piperacillin/Tazobactam/Dextrose 3.375 gm in 50 mls @ 100 mls/hr 12/19/21 06:00 12/21/21 06:05 Zosyn 3.375 Gm/D5w 50ml Pm IVPB Infused Q8H BRET Infusion Magnesium Hydroxide 30 ml 12/18/21 20:05 Magnesium Hydroxide Susp 30 Ml Udc PO DAILY PRN Constipation Melatonin 3 mg 12/18/21 20:05 Melatonin 3 Mg Tablet PO HS PRN INSOMINA Morphine Sulfate 2 mg 12/18/21 20:05 Morphine Sulfate (*Crx) 2 Mg/Ml Inj IV PUSH Q4H PRN For pain 7-10 Ondansetron HCl 4 mg 12/18/21 20:05 Ondansetron Inj 4 Mg/2 Ml Vial IV PUSH Q6H PRN Nausea And Vomiting Radiology Results: ITS Impressions Pelvic/Transvag US 12/18/21 18:36 IMPRESSION: Normal pelvic sonogram findings. Chest X-Ray 12/18/21 19:37 IMPRESSION: No acute cardiopulmonary process. Abdomen/Pelvis CT 12/20/21 07:55 IMPRESSION: 1. Stable 2.6 cm cystic mass in right kidney, consistent with abscess. 2. Nonobstructing right kidney stones. Labs Labs: Laboratory Results - last 24 hr 12/20/21 12/21/21 12/21/21 18:07 05:45 11:16 WBC 8.7 RBC 3.88 L Hgb 10.5 L Hct
--- NOTE | 2021-12-21 13:12 | PM.IMPN ---
Progress Note: A&P Assessment and Plan (1) UTI (urinary tract infection): Code(s): N39.0 - Urinary tract infection, site not specified Status: Acute Assessment and Plan: Will give IV Zosyn follow culture results Reviewed CBC CMP UA 12/21/2021 interval history: 36-year-old female with pyelonephritis, and 2.7 cm right kidney cyst concerning for infection abscess seen by Urology recommended further evaluation with CT scan of the abdomen, the CT scan showed 2.6 cm and concerning for abscess, urine culture is growing E coli, pansensitive, will continue Zosyn, and blood culture still no growth,, patient is being treated, patient had fever again on 12/20 patient is scheduled for drain placement today, will follow and after drain will do blood culture, will continue IV abx, will continue to monitor and further recommendation to follow. patient is present in the room and answered all his questions, (2) Kidney abscess: Code(s): N15.1 - Renal and perinephric abscess Status: Acute Assessment and Plan: Urology consult NPO after midnight except meds (3) Abdominal pain: Code(s): R10.9 - Unspecified abdominal pain Status: Acute Assessment and Plan: Pain control (4) Mechanical deep vein thrombosis (DVT) prophylaxis in place: Code(s): Z78.9 - Other specified health status Status: Acute Assessment and Plan: Mechanical DVT prophylaxis pending urology evaluation consider Lovenox if no surgical intervention and prolonged hospitalization Subjective Date/time seen: 12/21/21 13:12 12/21/2021 interval history: 36-year-old female with pyelonephritis, and 2.7 cm right kidney cyst concerning for infection abscess seen by Urology recommended further evaluation with CT scan of the abdomen, the CT scan showed 2.6 cm and concerning for abscess, urine culture is growing E coli, pansensitive, will continue Zosyn, and blood culture still no growth,, patient is being treated, patient had fever again on 12/20 patient is scheduled for drain placement today, will follow and after drain will do blood culture, will continue IV abx, will continue to monitor and further recommendation to follow. patient is present in the room and answered all his questions, Exam Narrative: Patient is comfortable, NAD HEENT: eyes are clear and none icteric LUNGS: normal respiratory effort ABD: not distended Lower extremities: no edema SKIN: nonjaundiced Neuro: grossly intact. Objective Data Vital Signs Vital Signs: Vital Signs - 24 hr 12/20/21 14:12 12/20/21 20:04 12/20/21 20:00 Temperature 100.6 F H 98.9 F Pulse Rate 79 71 71 Respiratory Rate 18 18 18 Blood Pressure 124/72 100/69 Pulse Oximetry 100 100 100 Oxygen Delivery Room Air 12/21/21 04:03 12/21/21 08:10 12/21/21 10:12 Temperature 99.2 F Pulse Rate 93 Respiratory Rate 18 Blood Pressure 121/72 Pulse Oximetry 98 96 Oxygen Delivery Room Air Room Air Intake/Output Intake/Output: Intake & Output 12/18/21 12/19/21 12/20/21 12/21/21 23:59 23:59 23:59 23:59 Intake Total 1050 3870 3720 1620 Output Total 1700 1200 1300 Balance 1050 2170 2520 320 Meds/Results Medications: Active Medications Generic Name Dose Route Start Last Admin Trade Name Freq PRN Reason Stop Dose Admin Acetaminophen 650 mg 12/18/21 20:05 12/19/21 22:25 Acetaminophen 325 Mg Tablet PO 650 mg Q6H PRN Administration Moderate pain Hydrocodone Bitart/Acetaminophen 1 tab 12/18/21 20:05 12/20/21 16:48 Hydrocodone/Acetaminophen (*Crx) 5-325 Mg Tablet PO 1 tab Q4H PRN Administration Moderate Pain (4-6) Bisacodyl 5 mg 12/18/21 20:05 Bisacodyl 5 Mg Tablet Ec PO DAILY PRN Constipation Sodium Chloride 1,000 mls @ 100 mls/hr 12/18/21 20:05 12/21/21 08:10 Normal Saline Iv IV CONT 100 mls/hr .Q10H BRET Administration Piperacillin/Tazobactam/Dextrose 3.375 gm in
[2021-12-21 15:00] VITALS: BP 125/68; PULSE 75; RESP 18; TEMP 37.1; O2SAT 99
--- NOTE | 2021-12-21 15:53 | PC.NURSE ---
Patient to CT per stretcher at 1420.
--- NOTE | 2021-12-21 15:53 | PC.NURSE ---
Patient return from CT per stretcher at 1530.
[2021-12-21] MEDS: MORPHINE SULFATE (*CRX) 2 MG/ML INJ IV PUSH (17:30)
[2021-12-21 18:03] LABS: Basophils Percent Auto 0.3 % (0.2-1.2); Eosinophils Percent Auto 0.2 % (0-4.4); Hematocrit 30.6 % (37.0-47.0); Hemoglobin 10.1 g/dL (12.0-15.0); Immature Granulocyte Absolute 0.03 K/mm3 (0.00-0.031); Immature Granulocyte Percent A 0.5 % (0-0.5); Lymphocytes Absolute Auto 0.99 K/mm3 (0.9-3.2); Lymphocytes Percent Auto 15.9 % (18.3-44.2); Mean Corpuscular Hemoglobin 26.9 pg (26-34); Mean Corpuscular Volume 81.6 fl (80-100); Mean Platelet Volume 11.2 fl (7.4-10.4); Monocytes Absolute Auto 0.7 K/mm3 (0.1-0.6); Monocytes Percent Auto 11.4 % (2.6-8.5); Neutrophils Absolute Auto 4.5 K/mm3 (1.3-6.7); Neutrophils Percent Auto 71.7 % (45.5-73.1); Platelet Count Result 223 k/mm3 (150-375); Red Blood Count 3.75 M/mm3 (4.2-5.4); Red Cell Distribution Width 12.7 % (11.5-14.5); White Blood Count 6.2 K/mm3 (4.5-10.0)
[2021-12-21] MEDS: HYDROcodone/acetaminophen (*CRX) 5-325 MG TABLET 1 TAB PO (19:23)
[2021-12-21 20:00] VITALS: PULSE 78; RESP 20; O2SAT 99
[2021-12-21 20:30] VITALS: BP 120/67; PULSE 78; RESP 20; TEMP 37.1; O2SAT 99
[2021-12-22] MEDS: MORPHINE SULFATE (*CRX) 2 MG/ML INJ IV PUSH (00:09)
[2021-12-22 05:12] VITALS: BP 105/64; PULSE 64; RESP 20; TEMP 36.8; O2SAT 100
[2021-12-22] MEDS: SODIUM CHLORIDE 0.9% IV 1,000 ML 100 ML IV CONT ×2 (05:54→17:15)
[2021-12-22] MEDS: HYDROcodone/acetaminophen (*CRX) 5-325 MG TABLET 1 TAB PO (09:24)
--- NOTE | 2021-12-22 09:44 | WPDUROPN2 ---
Progress Note: A&P Assessment and Plan (1) Kidney abscess: Code(s): N15.1 - Renal and perinephric abscess Status: Acute Assessment and Plan: Status post percutaneous drainage. Has been afebrile since placement. Will monitor another 24-48 hours and follow drainage. If minimal drainage over next 24-48 hours will repeat scan prior to drain removal. Awaiting cultures from drainage. Needs to increase activity and ambulation Subjective Subjective Date/Time Seen: 12/22/21 09:44 Principal diagnosis: Right renal abscess Interval history: No major complaints other than some discomfort from the recently placed percutaneous drain. Vital signs are stable and patient has remained afebrile. Cultures from abscess are pending. Minimal drainage at this time. Review of Systems Review of Systems: All systems reviewed & are unremarkable except as noted in HPI and below Exam Const: General: cooperative and comfortable Resp: Effort & Inspection: normal respiratory effort Cardio: Rate: regular rate Rhythm: regular rhythm Objective Data Vital Signs Vital Signs: Vital Signs - 24 hr 12/21/21 10:12 12/21/21 15:00 12/21/21 20:30 Temperature 37.1 C 37.1 C Pulse Rate 75 78 Respiratory Rate 18 20 Blood Pressure 125/68 120/67 Pulse Oximetry 96 99 99 Oxygen Delivery Room Air 12/21/21 20:00 12/22/21 05:12 Temperature 36.8 C Pulse Rate 78 64 Respiratory Rate 20 20 Blood Pressure 105/64 Pulse Oximetry 99 100 Oxygen Delivery Room Air Intake/Output Intake/Output: Intake & Output 12/19/21 12/20/21 12/21/21 12/22/21 23:59 23:59 23:59 23:59 Intake Total 3870 3720 3770 1450 Output Total 1700 1200 2850 Balance 2170 2520 920 1450 Meds/Results Medications: Active Medications Generic Name Dose Route Start Last Admin Trade Name Freq PRN Reason Stop Dose Admin Acetaminophen 650 mg 12/18/21 20:05 12/19/21 22:25 Acetaminophen 325 Mg Tablet PO 650 mg Q6H PRN Administration Moderate pain Hydrocodone Bitart/Acetaminophen 1 tab 12/18/21 20:05 12/22/21 09:24 Hydrocodone/Acetaminophen (*Crx) 5-325 Mg Tablet PO 1 tab Q4H PRN Administration Moderate Pain (4-6) Bisacodyl 5 mg 12/18/21 20:05 Bisacodyl 5 Mg Tablet Ec PO DAILY PRN Constipation Sodium Chloride 1,000 mls @ 100 mls/hr 12/18/21 20:05 12/22/21 05:54 Normal Saline Iv IV CONT 100 mls/hr .Q10H BRET Administration Piperacillin/Tazobactam/Dextrose 3.375 gm in 50 mls @ 100 mls/hr 12/19/21 06:00 12/22/21 05:55 Zosyn 3.375 Gm/D5w 50ml Pm IVPB 100 mls/hr Q8H BRET Administration Magnesium Hydroxide 30 ml 12/18/21 20:05 Magnesium Hydroxide Susp 30 Ml Udc PO DAILY PRN Constipation Melatonin 3 mg 12/18/21 20:05 Melatonin 3 Mg Tablet PO HS PRN INSOMINA Morphine Sulfate 2 mg 12/18/21 20:05 12/22/21 00:09 Morphine Sulfate (*Crx) 2 Mg/Ml Inj IV PUSH 2 mg Q4H PRN Administration For pain 7-10 Ondansetron HCl 4 mg 12/18/21 20:05 Ondansetron Inj 4 Mg/2 Ml Vial IV PUSH Q6H PRN Nausea And Vomiting Radiology Results: ITS Impressions Pelvic/Transvag US 12/18/21 18:36 IMPRESSION: Normal pelvic sonogram findings. Chest X-Ray 12/18/21 19:37 IMPRESSION: No acute cardiopulmonary process. Abdomen/Pelvis CT 12/20/21 07:55 IMPRESSION: 1. Stable 2.6 cm cystic mass in right kidney, consistent with abscess. 2. Nonobstructing right kidney stones. Catheter Placement CT 12/21/21 15:38 IMPRESSION: 1. Successful CT-guided right kidney abscess drainage. 2. 4 mL opaque, urias fluid was sent for aerobic and anaerobic cultures. Labs Labs: Laboratory Results - last 24 hr 12/21/21 12/21/21 11:16 17:47 WBC 6.2 RBC 3.75 L Hgb 10.1 L Hct 30.6 L MCV 81.6 MCH 26.9 MCHC 33.0 RDW 12.7 Plt Count 223 MPV 11.2 H Immature Gran % (Auto) 0.5 Neut % (Auto) 71.7 Lymph % (A
--- NOTE | 2021-12-22 11:35 | PM.IMPN ---
Progress Note: A&P Assessment and Plan (1) UTI (urinary tract infection): Code(s): N39.0 - Urinary tract infection, site not specified Status: Acute Assessment and Plan: Will give IV Zosyn follow culture results Reviewed CBC CMP UA 12/22/2021 interval history: 36-year-old female with pyelonephritis, and 2.7 cm right kidney cyst concerning for infection abscess seen by Urology recommended further evaluation with CT scan of the abdomen, the CT scan showed 2.6 cm and concerning for abscess, urine culture is growing E coli, pansensitive, will continue Zosyn, and blood culture still no growth,, patient is being treated, patient had fever again on 12/20 patient had drain placement 12/21, repeated blood culture, IR collected will follow up culture and will continue IV abx, will continue to monitor and further recommendation to follow. patient and nursing staff are encourage use SCD, will have PT work with patient to ambulate, (2) Kidney abscess: Code(s): N15.1 - Renal and perinephric abscess Status: Acute Assessment and Plan: Urology consult NPO after midnight except meds (3) Abdominal pain: Code(s): R10.9 - Unspecified abdominal pain Status: Acute Assessment and Plan: Pain control (4) Mechanical deep vein thrombosis (DVT) prophylaxis in place: Code(s): Z78.9 - Other specified health status Status: Acute Assessment and Plan: Mechanical DVT prophylaxis pending urology evaluation consider Lovenox if no surgical intervention and prolonged hospitalization Subjective Date/time seen: 12/22/21 11:35 12/22/2021 interval history: 36-year-old female with pyelonephritis, and 2.7 cm right kidney cyst concerning for infection abscess seen by Urology recommended further evaluation with CT scan of the abdomen, the CT scan showed 2.6 cm and concerning for abscess, urine culture is growing E coli, pansensitive, will continue Zosyn, and blood culture still no growth,, patient is being treated, patient had fever again on 12/20 patient had drain placement 12/21, repeated blood culture, IR collected will follow up culture and will continue IV abx, will continue to monitor and further recommendation to follow. patient and nursing staff are encourage use SCD, will have PT work with patient to ambulate, Exam Narrative: Patient is comfortable, NAD HEENT: eyes are clear and none icteric LUNGS: normal respiratory effort ABD: not distended Lower extremities: no edema SKIN: nonjaundiced Neuro: grossly intact. Objective Data Vital Signs Vital Signs: Vital Signs - 24 hr 12/21/21 15:00 12/21/21 20:30 12/21/21 20:00 Temperature 98.7 F 98.8 F Pulse Rate 75 78 78 Respiratory Rate 18 20 20 Blood Pressure 125/68 120/67 Pulse Oximetry 99 99 99 Oxygen Delivery Room Air 12/22/21 05:12 Temperature 98.2 F Pulse Rate 64 Respiratory Rate 20 Blood Pressure 105/64 Pulse Oximetry 100 Oxygen Delivery Intake/Output Intake/Output: Intake & Output 12/19/21 12/20/21 12/21/21 12/22/21 23:59 23:59 23:59 23:59 Intake Total 3870 3720 3770 1450 Output Total 1700 1200 2850 Balance 2170 2520 920 1450 Meds/Results Medications: Active Medications Generic Name Dose Route Start Last Admin Trade Name Manoloq PRN Reason Stop Dose Admin Acetaminophen 650 mg 12/18/21 20:05 12/19/21 22:25 Acetaminophen 325 Mg Tablet PO 650 mg Q6H PRN Administration Moderate pain Hydrocodone Bitart/Acetaminophen 1 tab 12/18/21 20:05 12/22/21 09:24 Hydrocodone/Acetaminophen (*Crx) 5-325 Mg Tablet PO 1 tab Q4H PRN Administration Moderate Pain (4-6) Bisacodyl 5 mg 12/18/21 20:05 Bisacodyl 5 Mg Tablet Ec PO DAILY PRN Constipation Sodium Chloride 1,000 mls @ 100 mls/hr 12/18/21 20:05 12/22/21 05:54 Normal Saline Iv IV CONT 100 mls/hr .Q10H BRET Administration Piperacillin/Tazobactam/Dextrose 3.375 gm in 50 mls @ 100 mls/hr 10
[2021-12-22 12:55] LABS: Hematocrit 30.7 % (37.0-47.0); Hemoglobin 9.9 g/dL (12.0-15.0); Mean Corpuscular HGB Conc 32.2 g/dl (32-36); Mean Corpuscular Hemoglobin 27.2 pg (26-34); Mean Corpuscular Volume 84.3 fl (80-100); Mean Platelet Volume 10.9 fl (7.4-10.4); Platelet Count Result 249 k/mm3 (150-375); Red Blood Count 3.64 M/mm3 (4.2-5.4); Red Cell Distribution Width 12.8 % (11.5-14.5); White Blood Count 3.7 K/mm3 (4.5-10.0)
[2021-12-22 13:07] LABS: Anion Gap 7 mmol/L (8-16); Blood Urea Nitrogen 7 mg/dL (7-17); Calcium 8.1 mg/dL (8.4-10.2); Carbon Dioxide 25 mmol/L (22-30); Chloride 107 mmol/L (98-107); Estimated CRCL calculation 114 ml/min; Estimated Glomerular Filt Rate > 60; Glucose 115 mg/dL (65-110); Potassium 3.8 mmol/L (3.4-5.0); Sodium 139 mmol/L (137-145)
[2021-12-22 14:00] VITALS: BP 115/68; PULSE 66; RESP 18; TEMP 36.7; O2SAT 100
[2021-12-22 20:04] VITALS: BP 125/76; PULSE 73; RESP 18; TEMP 36.3; O2SAT 100
[2021-12-23] MEDS: SODIUM CHLORIDE 0.9% IV 1,000 ML 100 ML IV CONT ×3 (01:55→20:53)
[2021-12-23 04:33] VITALS: BP 115/64; PULSE 59; RESP 16; TEMP 36.6; O2SAT 100
[2021-12-23 05:56] LABS: Hematocrit 29.6 % (37.0-47.0); Hemoglobin 9.6 g/dL (12.0-15.0); Mean Corpuscular HGB Conc 32.4 g/dl (32-36); Mean Corpuscular Volume 83.4 fl (80-100); Platelet Count Result 253 k/mm3 (150-375); Red Blood Count 3.55 M/mm3 (4.2-5.4); Red Cell Distribution Width 12.7 % (11.5-14.5); White Blood Count 2.8 K/mm3 (4.5-10.0)
[2021-12-23 06:20] LABS: Anion Gap 7 mmol/L (8-16); Blood Urea Nitrogen 6 mg/dL (7-17); Calcium 8.2 mg/dL (8.4-10.2); Carbon Dioxide 23 mmol/L (22-30); Chloride 109 mmol/L (98-107); Estimated CRCL calculation 114 ml/min; Estimated Glomerular Filt Rate > 60; Glucose 93 mg/dL (65-110); Magnesium 1.9 mg/dL (1.6-2.3); Potassium 3.8 mmol/L (3.4-5.0); Sodium 139 mmol/L (137-145)
--- NOTE | 2021-12-23 09:32 | PM.IMPN ---
Progress Note: A&P Assessment and Plan (1) UTI (urinary tract infection): Code(s): N39.0 - Urinary tract infection, site not specified Status: Acute Assessment and Plan: Will give IV Zosyn follow culture results Reviewed CBC CMP UA 12/23/2021 interval history: 36-year-old female with pyelonephritis, and 2.7 cm right kidney cyst concerning for infection abscess seen by Urology recommended further evaluation with CT scan of the abdomen, the CT scan showed 2.6 cm and concerning for abscess, urine culture is growing E coli, pansensitive, will continue Zosyn, and blood culture still no growth,, patient is being treated, patient had fever again on 12/20 patient had drain placement 12/21, repeated blood culture, IR collected abscess culture Growing Gram-negative bacilli most likely E coli and will follow up culture and will continue IV abx, will continue to monitor and further recommendation to follow. patient and nursing staff are encourage use SCD, will have PT work with patient to ambulate, (2) Kidney abscess: Code(s): N15.1 - Renal and perinephric abscess Status: Acute Assessment and Plan: Urology consult NPO after midnight except meds (3) Abdominal pain: Code(s): R10.9 - Unspecified abdominal pain Status: Acute Assessment and Plan: Pain control (4) Mechanical deep vein thrombosis (DVT) prophylaxis in place: Code(s): Z78.9 - Other specified health status Status: Acute Assessment and Plan: Mechanical DVT prophylaxis pending urology evaluation consider Lovenox if no surgical intervention and prolonged hospitalization Subjective Date/time seen: 12/23/21 09:32 12/23/2021 interval history: 36-year-old female with pyelonephritis, and 2.7 cm right kidney cyst concerning for infection abscess seen by Urology recommended further evaluation with CT scan of the abdomen, the CT scan showed 2.6 cm and concerning for abscess, urine culture is growing E coli, pansensitive, will continue Zosyn, and blood culture still no growth,, patient is being treated, patient had fever again on 12/20 patient had drain placement 12/21, repeated blood culture, IR collected abscess culture Growing Gram-negative bacilli most likely E coli and will follow up culture and will continue IV abx, will continue to monitor and further recommendation to follow. patient and nursing staff are encourage use SCD, will have PT work with patient to ambulate, Exam Narrative: Patient is comfortable, NAD HEENT: eyes are clear and none icteric LUNGS: normal respiratory effort ABD: not distended Lower extremities: no edema SKIN: nonjaundiced Neuro: grossly intact. Objective Data Vital Signs Vital Signs: Vital Signs - 24 hr 12/22/21 13:52 12/22/21 14:00 12/22/21 19:53 Temperature 98.1 F Pulse Rate 66 Respiratory Rate 18 Blood Pressure 115/68 Pulse Oximetry 100 Oxygen Delivery Room Air Room Air 12/22/21 20:04 12/23/21 04:33 Temperature 97.3 F L 97.8 F Pulse Rate 73 59 L Respiratory Rate 18 16 Blood Pressure 125/76 115/64 Pulse Oximetry 100 100 Oxygen Delivery Intake/Output Intake/Output: Intake & Output 12/20/21 12/21/21 12/22/21 12/23/21 23:59 23:59 23:59 23:59 Intake Total 3720 3770 3740 1050 Output Total 1200 2850 3700 800 Balance 2520 920 40 250 Meds/Results Medications: Active Medications Generic Name Dose Route Start Last Admin Trade Name Freq PRN Reason Stop Dose Admin Acetaminophen 650 mg 12/18/21 20:05 12/19/21 22:25 Acetaminophen 325 Mg Tablet PO 650 mg Q6H PRN Administration Moderate pain Hydrocodone Bitart/Acetaminophen 1 tab 12/18/21 20:05 12/22/21 09:24 Hydrocodone/Acetaminophen (*Crx) 5-325 Mg Tablet PO 1 tab Q4H PRN Administration Moderate Pain (4-6) Bisacodyl 5 mg 12/18/21 20:05 Bisacodyl 5 Mg Tablet Ec PO DAILY PRN Constipation Sodium Chloride 1,000 mls @ 100 mls/hr 1
--- NOTE | 2021-12-23 10:59 | WPDUROPN2 ---
Progress Note: A&P Assessment and Plan (1) Kidney abscess: Code(s): N15.1 - Renal and perinephric abscess Status: Acute Assessment and Plan: Continue with drain for today. Await final culture on abscess fluid. May consider removal of drain in morning if minimal output. Discussed decreasing white count with Dr. Vallejo. He will monitor with repeat level in morning. Subjective Subjective Date/Time Seen: 12/23/21 10:59 Principal diagnosis: Right renal abscess Interval history: Patient feeling better at this time. Has been afebrile. Only concern is decreasing white count at this time. Minimal drainage from right renal drain. Preliminary culture with Gram-negative bacilli. Review of Systems Review of Systems: All systems reviewed & are unremarkable except as noted in HPI and below Exam Const: General: cooperative and comfortable Resp: Effort & Inspection: normal respiratory effort Cardio: Rate: regular rate Rhythm: regular rhythm Objective Data Vital Signs Vital Signs: Vital Signs - 24 hr 12/22/21 13:52 12/22/21 14:00 12/22/21 19:53 Temperature 36.7 C Pulse Rate 66 Respiratory Rate 18 Blood Pressure 115/68 Pulse Oximetry 100 Oxygen Delivery Room Air Room Air 12/22/21 20:04 12/23/21 04:33 Temperature 36.3 C L 36.6 C Pulse Rate 73 59 L Respiratory Rate 18 16 Blood Pressure 125/76 115/64 Pulse Oximetry 100 100 Oxygen Delivery Intake/Output Intake/Output: Intake & Output 12/20/21 12/21/21 12/22/21 12/23/21 23:59 23:59 23:59 23:59 Intake Total 3720 3770 3740 1320 Output Total 1200 2850 3700 800 Balance 2520 920 40 520 Meds/Results Medications: Active Medications Generic Name Dose Route Start Last Admin Trade Name Freq PRN Reason Stop Dose Admin Acetaminophen 650 mg 12/18/21 20:05 12/19/21 22:25 Acetaminophen 325 Mg Tablet PO 650 mg Q6H PRN Administration Moderate pain Hydrocodone Bitart/Acetaminophen 1 tab 12/18/21 20:05 12/22/21 09:24 Hydrocodone/Acetaminophen (*Crx) 5-325 Mg Tablet PO 1 tab Q4H PRN Administration Moderate Pain (4-6) Bisacodyl 5 mg 12/18/21 20:05 Bisacodyl 5 Mg Tablet Ec PO DAILY PRN Constipation Sodium Chloride 1,000 mls @ 100 mls/hr 12/18/21 20:05 12/23/21 01:55 Normal Saline Iv IV CONT 100 mls/hr .Q10H BRET Administration Piperacillin/Tazobactam/Dextrose 3.375 gm in 50 mls @ 100 mls/hr 12/19/21 06:00 12/23/21 05:36 Zosyn 3.375 Gm/D5w 50ml Pm IVPB Infused Q8H BRET Infusion Magnesium Hydroxide 30 ml 12/18/21 20:05 Magnesium Hydroxide Susp 30 Ml Udc PO DAILY PRN Constipation Melatonin 3 mg 12/18/21 20:05 Melatonin 3 Mg Tablet PO HS PRN INSOMINA Morphine Sulfate 2 mg 12/18/21 20:05 12/22/21 00:09 Morphine Sulfate (*Crx) 2 Mg/Ml Inj IV PUSH 2 mg Q4H PRN Administration For pain 7-10 Ondansetron HCl 4 mg 12/18/21 20:05 Ondansetron Inj 4 Mg/2 Ml Vial IV PUSH Q6H PRN Nausea And Vomiting Radiology Results: ITS Impressions Pelvic/Transvag US 12/18/21 18:36 IMPRESSION: Normal pelvic sonogram findings. Chest X-Ray 12/18/21 19:37 IMPRESSION: No acute cardiopulmonary process. Abdomen/Pelvis CT 12/20/21 07:55 IMPRESSION: 1. Stable 2.6 cm cystic mass in right kidney, consistent with abscess. 2. Nonobstructing right kidney stones. Catheter Placement CT 12/21/21 15:38 IMPRESSION: 1. Successful CT-guided right kidney abscess drainage. 2. 4 mL opaque, urias fluid was sent for aerobic and anaerobic cultures. Labs Labs: Laboratory Results - last 24 hr 12/22/21 12/22/21 12/23/21 12:30 12:30 05:18 WBC 3.7 L 2.8 L RBC 3.64 L 3.55 L Hgb 9.9 L 9.6 L Hct 30.7 L 29.6 L MCV 84.3 83.4 MCH 27.2 27.0 MCHC 32.2 32.4 RDW 12.8 12.7 Plt Count 249 253 MPV 10.9 H 11.0 H Sodium 139 Potassium 3.8 Chloride 107 Carbon Dioxide
[2021-12-23 12:33] LABS: Basophils Percent Auto 0.4 % (0.2-1.2); Eosinophils Percent Auto 1.6 % (0-4.4); Hematocrit 30.1 % (37.0-47.0); Hemoglobin 9.6 g/dL (12.0-15.0); Immature Granulocyte Absolute 0.01 K/mm3 (0.00-0.031); Immature Granulocyte Percent A 0.4 % (0-0.5); Lymphocytes Absolute Auto 1.03 K/mm3 (0.9-3.2); Lymphocytes Percent Auto 41.2 % (18.3-44.2); Mean Corpuscular HGB Conc 31.9 g/dl (32-36); Mean Corpuscular Hemoglobin 26.9 pg (26-34); Mean Corpuscular Volume 84.3 fl (80-100); Mean Platelet Volume 10.9 fl (7.4-10.4); Monocytes Absolute Auto 0.3 K/mm3 (0.1-0.6); Monocytes Percent Auto 11.6 % (2.6-8.5); Neutrophils Absolute Auto 1.1 K/mm3 (1.3-6.7); Neutrophils Percent Auto 44.8 % (45.5-73.1); Platelet Count Result 265 k/mm3 (150-375); Red Blood Count 3.57 M/mm3 (4.2-5.4); Red Cell Distribution Width 12.7 % (11.5-14.5); White Blood Count 2.5 K/mm3 (4.5-10.0)
[2021-12-23 14:00] VITALS: BP 120/65; PULSE 63; RESP 16; TEMP 36.6; O2SAT 100
[2021-12-23] MEDS: HYDROcodone/acetaminophen (*CRX) 5-325 MG TABLET 1 TAB PO (18:12)
[2021-12-23 21:11] VITALS: BP 112/61; PULSE 60; RESP 16; TEMP 36.5; O2SAT 100
[2021-12-24] MEDS: SODIUM CHLORIDE 0.9% IV 1,000 ML 100 ML IV CONT (05:21)
[2021-12-24 05:43] VITALS: BP 116/63; PULSE 60; RESP 16; TEMP 36.6; O2SAT 100
[2021-12-24 05:57] LABS: Basophils Percent Auto 0.7 % (0.2-1.2); Eosinophils Absolute Auto 0.1 K/mm3 (0-0.3); Hematocrit 31.9 % (37.0-47.0); Hemoglobin 10.2 g/dL (12.0-15.0); Immature Granulocyte Absolute 0.02 K/mm3 (0.00-0.031); Immature Granulocyte Percent A 0.7 % (0-0.5); Lymphocytes Absolute Auto 1.39 K/mm3 (0.9-3.2); Lymphocytes Percent Auto 46.5 % (18.3-44.2); Mean Corpuscular Hemoglobin 26.9 pg (26-34); Mean Corpuscular Volume 84.2 fl (80-100); Mean Platelet Volume 10.9 fl (7.4-10.4); Monocytes Absolute Auto 0.2 K/mm3 (0.1-0.6); Monocytes Percent Auto 7.7 % (2.6-8.5); Neutrophils Absolute Auto 1.2 K/mm3 (1.3-6.7); Neutrophils Percent Auto 41.4 % (45.5-73.1); Platelet Count Result 284 k/mm3 (150-375); Red Blood Count 3.79 M/mm3 (4.2-5.4); Red Cell Distribution Width 12.7 % (11.5-14.5)
[2021-12-24 06:16] LABS: Anion Gap 12 mmol/L (8-16); Blood Urea Nitrogen 6 mg/dL (7-17); Calcium 8.5 mg/dL (8.4-10.2); Carbon Dioxide 23 mmol/L (22-30); Chloride 107 mmol/L (98-107); Estimated CRCL calculation 97 ml/min; Estimated Glomerular Filt Rate > 60; Glucose 96 mg/dL (65-110); Magnesium 1.9 mg/dL (1.6-2.3); Potassium 3.9 mmol/L (3.4-5.0); Sodium 142 mmol/L (137-145)
[2021-12-24 14:10] VITALS: BP 119/77; PULSE 65; RESP 14; TEMP 36.7; O2SAT 100
--- NOTE | 2021-12-24 15:52 | WPDUROPN2 ---
Progress Note: A&P Assessment and Plan (1) Kidney abscess: Code(s): N15.1 - Renal and perinephric abscess Status: Acute Assessment and Plan: Patient to be discharged home today. I removed her right renal drain at the bedside today without difficulty, she tolerated well. Her drain site is clean and dry, no edema or drainage noted. A dry dressing was placed over the drain site and secured with tape. She will f/u in one month with a CT scan to ensure infection has resolved. Ok to d/c home on culture appropriate oral antibiotics. We also discussed the need for a cystoscopy in the office d/t chronic UTI's. Subjective Subjective Date/Time Seen: 12/24/21 15:52 Creatinine is stable at 0.60, WBC continues to trend down and is now at 3.0, Dr. Hamlin discussed with Hospitalist. Urine Cultures grew E-Coli She remains afebrile and pain is tolerable. Drain output is 0cc. I discussed with IR and Dr. Hamlin, both agree ok to remove drain today at the bedside. The patient c/o chronic UTI's normally but states she drinks plenty of water and urinates post coitally. Review of Systems Cardiovascular: Cardiovascular: Denies chest pain Respiratory: Respiratory: Reports no additional respiratory complaints Gastrointestinal: Gastrointestinal: Denies abdominal pain, Denies nausea and Denies vomiting Genitourinary: Genitourinary: Denies hematuria, Denies nocturia, Denies dysuria, Denies pelvic pain, Reports flank pain and Denies urinary urgency Exam Const: General: cooperative and comfortable Resp: Effort & Inspection: normal respiratory effort Cardio: Rate: regular rate GI: GI Palp: Yes Soft to palpation and No Tenderness to palpation present (GI) : General: Yes CVA tenderness (at drain site) and Yes other (drain placed and stitched in place, no drainage noted in her bag. ) Extrem: Right lower extremity: no edema Left lower extremity: no edema Objective Data Vital Signs Vital Signs: Vital Signs - 24 hr 12/23/21 21:11 12/23/21 20:00 12/24/21 05:43 Temperature 97.7 F 97.9 F Pulse Rate 60 60 Respiratory Rate 16 16 Blood Pressure 112/61 116/63 Pulse Oximetry 100 100 Oxygen Delivery Room Air 12/24/21 14:10 Temperature 98.1 F Pulse Rate 65 Respiratory Rate 14 Blood Pressure 119/77 Pulse Oximetry 100 Oxygen Delivery Intake/Output Intake/Output: Intake & Output 12/21/21 12/22/21 12/23/21 12/24/21 23:59 23:59 23:59 23:59 Intake Total 3770 3740 3520 1540 Output Total 2850 3700 800 Balance 254 58 6637 1540 Meds/Results Medications: Active Medications Generic Name Dose Route Start Last Admin Trade Name Freq PRN Reason Stop Dose Admin Acetaminophen 650 mg 12/18/21 20:05 12/19/21 22:25 Acetaminophen 325 Mg Tablet PO 650 mg Q6H PRN Administration Moderate pain Hydrocodone Bitart/Acetaminophen 1 tab 12/18/21 20:05 12/23/21 18:12 Hydrocodone/Acetaminophen (*Crx) 5-325 Mg Tablet PO 1 tab Q4H PRN Administration Moderate Pain (4-6) Bisacodyl 5 mg 12/18/21 20:05 Bisacodyl 5 Mg Tablet Ec PO DAILY PRN Constipation Sodium Chloride 1,000 mls @ 100 mls/hr 12/18/21 20:05 12/24/21 05:21 Normal Saline Iv IV CONT 100 mls/hr .Q10H BRET Administration Piperacillin/Tazobactam/Dextrose 3.375 gm in 50 mls @ 100 mls/hr 12/19/21 06:00 12/24/21 05:51 Zosyn 3.375 Gm/D5w 50ml Pm IVPB Infused Q8H BRET Infusion Magnesium Hydroxide 30 ml 12/18/21 20:05 Magnesium Hydroxide Susp 30 Ml Udc PO DAILY PRN Constipation Melatonin 3 mg 12/18/21 20:05 Melatonin 3 Mg Tablet PO HS PRN INSOMINA Morphine Sulfate 2 mg 12/18/21 20:05 12/22/21 00:09 Morphine Sulfate (*Crx) 2 Mg/Ml Inj IV PUSH 2 mg Q4H PRN Administration For pain 7-10 Ondansetron HCl 4 mg 12/18/21 20:05 Ondansetron Inj 4 Mg/2 Ml Vial IV PUSH Q6H PRN Nausea And Vomiting Radiology Results: ITS Impressions
--- NOTE | 2021-12-24 16:21 | PM.DS ---
DS: Admitting Diagnosis Discharge Date 12/24/2021 Admitting Diagnosis right abdominal pain DS: Discharge Diagnosis Discharge Diagnosis (1) UTI (urinary tract infection): Code(s): N39.0 - Urinary tract infection, site not specified Status: Acute Assessment and Plan: Will give IV Zosyn follow culture results Reviewed CBC CMP UA 12/23/2021 interval history: 36-year-old female with pyelonephritis, and 2.7 cm right kidney cyst concerning for infection abscess seen by Urology recommended further evaluation with CT scan of the abdomen, the CT scan showed 2.6 cm and concerning for abscess, urine culture is growing E coli, pansensitive, will continue Zosyn, and blood culture still no growth,, patient is being treated, patient had fever again on 12/20 patient had drain placement 12/21, repeated blood culture, IR collected abscess culture Growing Gram-negative bacilli most likely E coli and will follow up culture and will continue IV abx, will continue to monitor and further recommendation to follow. patient and nursing staff are encourage use SCD, will have PT work with patient to ambulate, (2) Kidney abscess: Code(s): N15.1 - Renal and perinephric abscess Status: Acute Assessment and Plan: Urology consult NPO after midnight except meds (3) Abdominal pain: Code(s): R10.9 - Unspecified abdominal pain Status: Acute Assessment and Plan: Pain control (4) Mechanical deep vein thrombosis (DVT) prophylaxis in place: Code(s): Z78.9 - Other specified health status Status: Acute Assessment and Plan: Mechanical DVT prophylaxis pending urology evaluation consider Lovenox if no surgical intervention and prolonged hospitalization DS: Summary Hospital Course Reason for hospitalization: Chief Complaint: 36 years old female with no significant past medical history presented to the hospital with right abdominal pain dull in nature worsening gradually radiating to the shoulder and radiating to the back associated with dysuria and frequency patient denies hematuria patient also complained of intermittent chills at the ER CT scan of the abdomen was done shows 2.7 right kidney cyst concerning for abscess urology was consulted patient was started on IV antibiotics patient was admitted to the hospital for further evaluation and treatment Hospital Course: 36-year-old female with pyelonephritis,? and 2.7 cm right kidney cyst concerning for infection abscess seen by Urology recommended further evaluation with CT scan of the abdomen, the CT scan? showed 2.6 cm and concerning for abscess,? urine culture is growing E coli, pansensitive, will continue Zosyn, and blood culture still no growth,,? patient is being treated,? patient had fever again on 12/20? patient had drain placement 12/21, repeated blood culture, IR collected abscess culture Growing Gram-negative bacilli most likely E coli and will follow up culture and? will continue IV abx, will continue to monitor and further recommendation to follow. patient and nursing staff are encourage use SCD, will have PT work with patient to ambulate. patient is clinically stable pain has improved, there is minimal drain from drainage, seen by urologist and drain was removed, with ID pharmacist will discharge the patient home cefdinir. patient will follow discharge care instruction from a urologist. Time Spent with Patient Time attestation: Total time spent providing and/or coordinating discharge services: Exam Narrative: Patient is comfortable, NAD HEENT: eyes are clear and none icteric LUNGS: normal respiratory effort ABD: not distended Lower extremities: no edema SKIN: nonjaundiced Neuro: grossly intact. DS: Data Data Completed and Pending Labs on day of discharge: Labs from last 24 hours 12/24/21 12/24/21 05:33 05:33 WBC 3.0 L RBC 3.79 L Hgb 10.2 L Hct 31.9 L MCV 84.2 MCH 26.9 [address]
== END 2021-12-24 16:55 | disposition home or self-care (01) | DRG 443 ==
LOC: ANHED 20:28 → ANH3MEDSUR 22:18 → ANH2MED 22:52
PROVIDERS: Admitting Provider Internal Medicine; Emergency Provider Emergency Medicine; PCP Emergency Medicine; Visit Provider Family Medicine
DX: N15.1 Renal and perinephric abscess (principal); B96.20 Unspecified Escherichia coli [E. coli] as the cause of diseases classified elsewhere; N12 Tubulo-interstitial nephritis, not specified as acute or chronic
CPT/HCPCS: 36415; 71046; 74177; 75989; 76830; 76856; 80048; 80053; 80307; 81001; 81025; 83690; 83735; 84484; 85025; 85027; 85610; 85730; 87040; 87070; 87075; 87077; 87086; 87088; 87186; 87205; 96361; 96365; 96375; 97161; 99285; A9270; C1729; G0378; J0696; J2270; J2405; J2543; J7030; Q9967

== ENCOUNTER 2022-04-04 19:11 | Emergency (ER) | payer OTHER, SELFPAY ==
[2022-04-04 19:17] VITALS: BP 120/70; PULSE 96; RESP 17; TEMP 36.8; O2SAT 100
[2022-04-04 21:46] VITALS: BP 124/66; PULSE 92; RESP 19; TEMP 37.6; O2SAT 100
[2022-04-04 22:21] VITALS: TEMP 37.8
[2022-04-04 22:30] LABS: Influenza A QL RT-PCR Negative (Negative); Influenza B QL RT-PCR Negative (Negative); SARS-CoV-2 RNA PCR Negative
--- NOTE | 2022-04-04 22:45 | ED.FEVER ---
HPI - Fever General Chief Complaint: Fever Stated Complaint: body aches/fever Time Seen by Provider: 04/04/22 22:08 History of Present Illness HPI Narrative: Patient is a 37-year-old female here for evaluation of body aches, sore throat, rhinorrhea, congestion, mild headache and fevers at home. She states that her symptoms have been going on for the past 2 days. Positive sick contacts, patient's children are sick with similar symptoms. She has attempted ibuprofen without much relief of her symptoms. Denies neck pain or stiffness, nausea or vomiting, chest pain or shortness of breath. She is tolerating her secretions. Related Data Allergies Allergy/AdvReac Type Severity Reaction Status Date / Time No Known Allergies Allergy Verified 11/26/20 12:48 Review of Systems Review of Systems: Gen.: Reports fevers Eyes: Denies eye pain or visual change ENT: Reports congestion, sore throat, rhinorrhea Respiratory: Denies shortness of breath or cough CV: Denies chest pain or palpitations GI: Denies abdominal pain nausea, emesis or diarrhea denies burning, urgency, frequency or hematuria Musculoskeletal: reports body aches Neuro: Reports headache. Denies numbness, tingling, weakness or focal weakness Skin: Denies rash Except as documented, all other systems reviewed and negative PMFSH Social History Social History Smoking status: Never smoker Alcohol intake: never Substance use: never Living arrangements: with family Gender identity (if verbalized by the patient): Female Spiritual care concerns: No Exam Narrative: APPEARANCE: Well appearing, no pain in distress, well-nourished. Head: Normocephalic and atraumatic. EYES: PERRLA/EOMI, conjunctivae clear NOSE: No nasal drainage EARS: External ear normal in appearance THROAT: Tonsils are 2+ without exudates. Uvula is midline. Oropharynx is clear. Mucous membranes are moist. NECK: Full range of motion in neck without pain. Anterior cervical lymphadenopathy that is tender to palpation. RESPIRATORY: Airway patent, respirations nonlabored. Clear to auscultation bilaterally, no rales, rhonchi, wheezing. CARDIOVASCULAR: Regular rate and rhythm without murmurs, rubs, or gallops. ABDOMINAL: Normoactive bowel sounds. Soft, nontender, nondistended. No rebound tenderness or guarding. MUSCULOSKELETAL: no midline tenderness to c, t or l spine. Extremities are warm and well-perfused. Moves all extremities well. No edema. NEURO: No nuchal rigidity. Normal speech. No focal neurologic deficits. SKIN: Skin is warm and dry. No rashes. PSYCHIATRIC: Normal affect/mood. Course Vital Signs Vital signs: Vital Signs Temperature 98.2 F 04/04/22 19:17 Pulse Rate 96 04/04/22 19:17 Respiratory Rate 17 04/04/22 19:17 Blood Pressure 120/70 04/04/22 19:17 Pulse Oximetry 100 04/04/22 19:17 Oxygen Delivery Room Air 04/04/22 19:17 Temperature 100.0 F H 04/04/22 22:21 Pulse Rate 65 04/04/22 23:50 Respiratory Rate 14 04/04/22 23:50 Blood Pressure 123/74 04/04/22 23:50 Pulse Oximetry 98 04/04/22 23:50 Oxygen Delivery Room Air 04/04/22 19:17 MDM - Fever MDM Narrative Medical decision making narrative: 37-year-old female here for evaluation of sore throat, fevers, body aches and other upper respiratory infectious symptoms for the past several days. Patient is nontoxic in appearance, tolerating her secretions. She has tonsillar swelling with anterior cervical lymphadenopathy, and her strep test is positive. COVID and flu are negative. No evidence of RTA/GOLD LETTERER on exam given FROM in neck, midline uvula and the fact she is tolerating her secretions. She was provided with steroids for swelling and discomfort and Tylenol for the fever. She will be sent home on antibiotics. Return precautions discussed and she voiced understanding. Lab Data Labs: Lab Results 04/04/22 04/04/22 Range/Units
[2022-04-04] MEDS: ACETAMINOPHEN 500 MG TABLET 1000 MG PO (22:53)
[2022-04-04 23:18] LABS: Strep Group A RT-PCR DETECTED (Negative)
[2022-04-04 23:50] VITALS: BP 123/74; PULSE 65; RESP 14; O2SAT 98
== END 2022-04-04 23:50 | disposition home or self-care (01) ==
PROVIDERS: Emergency Provider Physician Assistant; PCP Family Medicine
DX: J02.0 Streptococcal pharyngitis (principal); Z20.822 Contact with and (suspected) exposure to COVID-19
CPT/HCPCS: 87636; 87651; 96372; 99283; A9270; J1100

== ENCOUNTER 2022-07-15 15:35 | Emergency (ER) | payer OTHER, SELFPAY ==
[2022-07-15 15:41] VITALS: BP 101/57; PULSE 89; RESP 16; TEMP 37.6; O2SAT 100
--- NOTE | 2022-07-15 15:47 | ED.UPPEXIN ---
HPI - Extremity Injury (Upper) General Chief Complaint: Upper Respiratory Infection Stated Complaint: URI Time Seen by Provider: 07/15/22 15:49 Source: patient, RN notes reviewed and old records reviewed Mode of arrival: ambulatory Limitations: no limitations History of Present Illness HPI narrative: 37-year-old female presents to the [facility] with nasal congestion and her body ?not feeling well. ? Patient states that she has been taking ibuprofen but no decongestants. Denies fevers. Onset (ago): week(s) (1) Related Data Allergies Allergy/AdvReac Type Severity Reaction Status Date / Time No Known Allergies Allergy Verified 11/26/20 12:48 Review of Systems Review of Systems: All systems reviewed & are unremarkable except as noted in HPI and below Constitutional: Constitutional: Reports no additional constitutional complaints Eyes: Eyes: Reports no additional eye complaints ENT: Reports as per HPI Cardiovascular: Cardiovascular: Reports no additional cardiovascular complaints, Denies chest pain and Denies dyspnea Respiratory: Respiratory: Reports no additional respiratory complaints, Denies chest congestion, Denies cough and Denies dyspnea Gastrointestinal: Gastrointestinal: Reports no additional gastrointestinal complaints, Denies abdominal pain, Denies nausea and Denies vomiting Musculoskeletal: Musculoskeletal: Reports no additional musculoskeletal complaints Integumentary/Breasts: Skin/Breast: Reports system reviewed and no additional complaints, except as docu Neurologic: Reports system reviewed and no additional complaints, except as documented Psychiatric: Psychiatric: Reports no additional psychiatric complaints Allergic/Immunologic: Allergic/Immunologic: Reports no additional allergic/immunologic complaints PMFSH Social History Social History Smoking status: Never smoker Alcohol intake: never Substance use: never Living arrangements: with family Gender identity (if verbalized by the patient): Female Spiritual care concerns: No Comments At the time of my signature, I reviewed and agree with the nursing past medical, surgical, social, and family history. There is no relevant family history pertinent to the patient complaint. Exam Const: General: cooperative, healthy appearing, comfortable, no acute distress, well developed, alert and well nourished Nutritional Appearance: well nourished Orientation/consciousness: patient oriented x3 Limitations: no limitations HENMT: Head: normal to inspection Ears: hearing grossly normal bilaterally and external ears normal Face/Nose/Sinus: Normal external nose present, Normal nares present, Abnormal mucous membranes and turbinates present boggy bilateral, Nasal discharge present clear and normal facial exam Face and sinus: normal facial exam Mouth: Yes Normal oral and palatal mucosa present, Yes lip normal and Yes moist mucous membranes Throat: posterior oropharynx normal and uvula midline Eyes: General: appearance normal, both eyes and all related structures Alignment and Position: alignment normal Periorbital: periorbital findings normal Conjunctivae: conjunctivae normal Pupils: Equal, round and reactive pupils present EOM: EOMs intact bilaterally Neck: Neck: normal visual inspection, full ROM, no lymphadenopathy and no meningeal signs Chest: Chest palpation & inspection: normal inspection of the chest Resp: Effort & Inspection: normal respiratory effort and able to speak in complete sentences Auscultation: clear to auscultation bilaterally, no crackles, no rales, no rhonchi and no wheezes Cardio: Rate: regular rate Rhythm: regular rhythm Back/Spine/Pelvis: Cervical Spine: cervical ROM normal Thoracic/Lumbar Spine: No thoracic spinal tenderness Skin: General skin exam: normal color and no rashes or lesions noted Lesions: no lesions Rashes: no rashes Wounds: no wounds Neuro: General
== END 2022-07-15 15:56 | disposition home or self-care (01) ==
PROVIDERS: Emergency Provider Nurse Practitioner
DX: J32.9 Chronic sinusitis, unspecified (principal)
CPT/HCPCS: 99213; G0463

== ENCOUNTER 2022-08-20 07:57 | Outpatient (CLI) | payer OTHER, SELFPAY ==
--- NOTE | ~2022-08-20 | US_ITS ---
EXAMINATION: US OB <= 14 weeks fetus DATE: 08/20/2022 09:24 INDICATION: First trimester dating TECHNIQUE: Real-time pelvic transabdominal and transvaginal ultrasound was performed. COMPARISON: None. FINDINGS: The uterus measures 12.8 x 6.2 x 9.2 cm. There is an intrauterine gestational sac. he art motion is identified measuring 164 beats per minute (bpm) by M-mode Doppler. The crown rump length measures 4.6 cm, which correlates with an estimated gestational age of 11 weeks and 3 day(s) (+/-) 7 day(s). The left ovary is not visualized however no left adnexal abnormality is seen. The right ovary measure s 2.3 x 1.7 x 2.3 cm. There is normal vascular flow in the right ovary. There is no free fluid in the pelvis. IMPRESSION: 1. Live intrauterine with an estimated gestational age of 11 weeks and 3 day(s) (+/-) 7 day (s) and an estimated delivery date of 03/08/2023. Reviewed, dictated and finalized at location A. IMPRESSION: 1. Live intrauterine with an estimated gestational age of 11 weeks an d 3 day(s) (+/-) 7 day(s) and an estimated delivery date of 03/08/2023.
== END 2022-08-20 07:58 | disposition home or self-care (01) ==
LOC: ANHIMG 07:58
PROVIDERS: Visit Provider Advanced Practice Midwife
DX: Z36.87 Encounter for antenatal screening for uncertain dates (principal); Z3A.11 11 weeks gestation of pregnancy
CPT/HCPCS: 76801

== ENCOUNTER 2023-03-05 07:27 | Outpatient (CLI) | payer OTHER, SELFPAY ==
[2023-03-05 08:04] LABS: Hematocrit 39.3 % (37.0-47.0); Hemoglobin 12.2 g/dL (12.0-15.0); Mean Corpuscular Hemoglobin 27.9 pg (26-34); Mean Corpuscular Volume 89.9 fl (80-100); Mean Platelet Volume 11.8 fl (7.4-10.4); Platelet Count Result 156 k/mm3 (150-375); Red Blood Count 4.37 M/mm3 (4.2-5.4); Red Cell Distribution Width 13.9 % (11.5-14.5); White Blood Count 6.5 K/mm3 (4.5-10.0)
[2023-03-05 14:03] LABS: Rapid Plasma Reagin Non-Reactive (NonReactive)
== END 2023-03-05 07:28 | disposition home or self-care (01) ==
LOC: ANHLAB 07:28
PROVIDERS: Visit Provider Obstetrics & Gynecology Gynecology
DX: Z34.93 Encounter for supervision of normal pregnancy, unspecified, third trimester (principal); Z3A.00 Weeks of gestation of pregnancy not specified
CPT/HCPCS: 36415; 85027; 86592; 86850; 86900; 86901

== ENCOUNTER 2023-03-06 05:40 | Inpatient (IN) | payer OTHER, SELFPAY ==
[2023-03-06] VITALS (59 sets, daily range): BP systolic 89–132; BP diastolic 37–96; PULSE 51–159; RESP 12–20; TEMP 36.1–36.6; O2SAT 94–98; BMI 34.9
--- NOTE | 2023-03-06 06:18 | LDADM ---
This patient, Palmira Todd, was admitted to Labor/Delivery/Recovery 120 on 03/06/23 at 05:40. Plans for c section, pain management and were discussed with patient. Patient/family oriented to hospital policies and general routines including ID bracelet, bed and alarms, visiting hours, pain management, procedures, bathroom and other care routines, personal items, smoking policy, room service/diet and guest tray routines, security routines, and visiting hours. Patient/Family are encouraged to report perceived risks to care and to ask questions if they do not understand what they are told or what they should do. See OBIX for further documentation.
[2023-03-06] MEDS: LACTATED RINGERS 1,000 ML 125 ML IV CONT ×2 (06:38→07:16)
--- NOTE | 2023-03-06 07:26 | WPDHPUPDATE1 ---
History and Physical Update Update Date/Time: 03/06/23 07:26 History and Physical has been reviewed, including an updated exam of the patient. There are NO changes in the patient's condition. Risks, benefits, and alternatives have been discussed and questions answered. Patient agrees to proceed with procedure.
--- NOTE | 2023-03-06 07:26 | PM.IMHP ---
H&P: HPI History of Present Illness Date/Time: 03/06/23 07:26 Chief Complaint: repeat Narrative: the patient is a 37-year-old 6 para 4 aborta 1 admitted at 39 and 5 7th weeks for repeat section. The patient's current has been uncomplicated. labs A-positive, rubella immune, RPR negative, hepatitis-B surface antigen negative, group B strep negative. Review of Systems Review of Systems: not repeated day of surgery; patient states no changes in status PMFSH Past Medical History Medical History (Updated 03/06/23 @ 07:30 by Génesis Hickey MD) (normal spontaneous vaginal delivery) 2010 full-term demise Surgical History Surgical History (Updated 03/06/23 @ 07:29 by Génesis Hickey MD) History of section, low transverse x3 1 set of twins Family History Family History (Updated 02/11/23 @ 12:44 by Katiana Hood RN) Other No pertinent family history Social History Social History Smoking status: Never smoker Second hand tobacco smoke exposure: No Alcohol intake: never Substance use: never Do You Feel Safe in your Home?: Yes Lack of Transportation: No Lack of Food: Never True Current Housing: I Have Housing Concerned About Future Housing: No Difficulty Paying Gas/Electric Bills: No Difficulty Paying for Meds: No Currently Unemployed: No Education: Master's Degree or Higher Difficulty w/ Childcare or Family Care: No Living arrangements: with family Gender identity (if verbalized by the patient): Female Spiritual care concerns: No Meds Home Medications and Allergies Home Medications Medication Instructions Recorded Confirmed Type Vitamin 1 tablet PO DAILY 10/28/22 02/11/23 History ferrous sulfate 1 tablet PO BID 10/28/22 02/11/23 History aspirin 81 mg capsule 81 mg PO DAILY 03/06/23 03/06/23 History ergocalciferol (vitamin D2) 1,250 03/06/23 03/06/23 History mcg (50,000 unit) capsule Allergies Allergy/AdvReac Type Severity Reaction Status Date / Time No Known Allergies Allergy Verified 02/11/23 12:43 Vital Signs Vital Signs - 24 hr 03/06/23 06:17 03/06/23 06:31 Pulse Rate 89 Blood Pressure 120/72 Oxygen Delivery Room Air Exam Const: General: healthy appearing and alert Orientation/consciousness: patient oriented x3 Resp: Effort & Inspection: normal respiratory effort GI: GI Palp: Yes Soft to palpation, No Tenderness to palpation present (GI) and Yes Other GI palpation findings present ( fundal height 42cm) : External Female Exam: normal external appearance Speculum Exam - Vagina: normal appearance of the vagina and normal vaginal discharge Speculum Exam - Cervix: normal appearance of the cervix Bimanual Exam- Adnexa, other: normal adnexae and No adnexal tenderness Neuro: General: patient oriented x3 Assessment and Plan Assessment and plan (1) 39 weeks gestation of : Code(s): Z3A.39 - 39 weeks gestation of Status: Acute Assessment and Plan: plan to proceed with repeat section
[2023-03-06] MEDS: ceFAZolin 2 GM/D5W 50 ML 2 GM/50 ML BAG IVPB (07:40)
--- NOTE | 2023-03-06 08:49 | W.PM.OBCSD ---
OB - Delivery Note Procedure Delivery date: 03/06/23 Pre-op diagnosis: Previous Delivery ( X3) Post-op Diagnosis: Same Procedure Performed: Repeat Secondary branch: low cervical, transverse Surgeon: Génesis Hickey MD Anesthesia type: Spinal Description of Procedure/Findings: The patient was taken to the operating room and placed under anesthesia in the dorsal supine position with a leftward tilt. She was prepped and draped in the usual sterile fashion. A Pfannenstiel skin incision was made through her prior incision and carried down to the underlying layer of fascia. Fascia was nicked in the midline and extended laterally using Grey scissors. The Ochsner were used to tent the fascia and the fascia was dissected off the rectus muscles using sharp dissection due to its extensive adhesions. The rectus muscles are in the midline and attempt to extend with blunt traction was not successful. The peritoneum is adherent to the rectus muscles. High in the incision the peritoneum was grasped and entered with Metzenbaum scissors. Again blunt traction was attempted with minimal results. The left rectus muscle is divided with Bovie cautery of the medial 1/3. This appeared to give enough room for delivery. The uterus is adherent to the anterior abdominal wall. The tubes and ovaries are not visualized due to extensive adhesions. The bladder flap was dissected off using sharp and blunt dissection. The bladder blade is placed. The lower uterine segment was incised in a transverse fashion with the scalpel. The incision was extended laterally with blunt traction. Palpation of the fetus reveals a transverse back down position with the head in the right lower quadrant. Cementer Machine was requested to come to the delivery room. Prior to rupture membranes internal cephalic version was attempted and not successful. The infant was able to be rotated to breech and during this process the membranes were ruptured with clear fluid. The right leg was delivered through the incision to the hips. The left leg was grasped and delivered through the incision to the hips. The infant then was delivered to the scapula and the arms delivered spontaneously. The infant was extended on the abdomen and the head delivered. The cord was clamped and cut and the infant handed to the waiting nursery nurse. The placenta was removed using manual traction. The uterus is cleared of all clots and debris. The uterus is closed using 0 Monocryl in a running locked fashion with the same suture used to imbricate. Good hemostasis is noted. The superficial layers are irrigated with good hemostasis noted at all areas. The fascia was then closed using 0 Vicryl in a running fashion. Subcutaneous tissues were irrigated made hemostatic using Bovie cautery. Skin is closed using 4-0 Vicryl in a subcuticular fashion. The Dermaflex was placed over the incision. Patient was taken to recovery in stable condition. Sponge, needle, and instrument counts are correct per the OR staff. Patient was given Ancef prior to incision. Specimen: No Estimated Blood Loss: 290 Drains: Yes ( Landon catheter) Packing: No Pathology: None sent Complications: No immediate complications Condition: Stable Disposition: Floor Baby Date of : 03/06/23 Weeks of gestation at delivery: 39 Infant gender: Female Weight (pounds): 6 Weight (ounces): 12 presentation: transverse ( back down) Placenta delivery description: Spontaneous Cord Vessel Description: 3 Vessels and Other ( very long cord with a true knot noted) score one minute: 3 score five minutes: 9
--- NOTE | 2023-03-06 08:56 | PM.OBDSVD ---
DS: Admitting Diagnosis Discharge Date 03/09/23 <Melani Bond MD - Last Filed: 03/09/23 06:29> Admitting Diagnosis intrauterine at 39 weeks previous section x3 <Génesis Hickey MD - Last Filed: 03/13/23 12:05> DS: Discharge Diagnosis Discharge Diagnosis (1) Status post repeat low transverse section: Code(s): Z98.891 - History of uterine scar from previous surgery <Génesis Hickey MD - Last Filed: 03/13/23 12:05> Status: Acute <Génesis Hickey MD - Last Filed: 03/13/23 12:05> OB - DS: Summary OB Procedures : NST and Ultrasound <Génesis Hickey MD - Last Filed: 03/13/23 12:05> OB Procedures Intrapartum: low cervical, transverse <Génesis Hickey MD - Last Filed: 03/13/23 12:05> OB Procedures: : None <Génesis Hickey MD - Last Filed: 03/13/23 12:05> Peripartum Data Infant Delivery Method: Section <Génesis Hickey MD - Last Filed: 03/13/23 12:05> Procedures: Procedures Operation Date: 03/06/23 07:30 <No data on this case meets the specified criteria> <Génesis Hickey MD - Last Filed: 03/13/23 12:05> complications: none <Génesis Hickey MD - Last Filed: 03/13/23 12:05> [place] 1: Gender: Female <Melani Bond MD - Last Filed: 03/09/23 06:29> Disposition of : home <Melani Bond MD - Last Filed: 03/09/23 06:29> Status at Discharge Functional status at discharge: independent ambulation <Génesis Hickey MD - Last Filed: 03/13/23 12:05> Overall status at discharge: patient is progressing back to baseline <Génesis Hickey MD - Last Filed: 03/13/23 12:05> Time Spent with Patient Time attestation: Total time spent providing and/or coordinating discharge services: <Génesis Hickey MD - Last Filed: 03/13/23 12:05> Exam Const: General: cooperative, comfortable, no acute distress and obese <Melani Bond MD - Last Filed: 03/09/23 06:29> Orientation/consciousness: patient oriented x3 <Melani Bond MD - Last Filed: 03/09/23 06:29> Resp: Effort & Inspection: normal respiratory effort <Melani Bond MD - Last Filed: 03/09/23 06:29> Auscultation: clear to auscultation bilaterally <Melani Bond MD - Last Filed: 03/09/23 06:29> Cardio: Rate: regular rate <Melani Bond MD - Last Filed: 03/09/23 06:29> GI: Inspection: non-distended and incision <Melani Bond MD - Last Filed: 03/09/23 06:29> GI Palp: No abdominal tenderness and Yes Soft to palpation <Melani Bond MD - Last Filed: 03/09/23 06:29> Auscultation: normal bowel sounds <Melani Bond MD - Last Filed: 03/09/23 06:29> : Other: fundus firm <Melani Bond MD - Last Filed: 03/09/23 06:29> Skin: General skin exam: normal color <Melani Bond MD - Last Filed: 03/09/23 06:29> Neuro: General: patient oriented x3 <Melani Bond MD - Last Filed: 03/09/23 06:29> Extrem: General: normal to inspection <Melani Bond MD - Last Filed: 03/09/23 06:29> Psych: Appearance: grossly normal <Melani Bond MD - Last Filed: 03/09/23 06:29> Affect: normal affect <Melani Bond MD - Last Filed: 03/09/23 06:29> Attitude: cooperative <Melani Bond MD - Last Filed: 03/09/23 06:29> Discharge Plan Discharge Attending physician on discharge: Génesis Hickey <Génesis Hickey MD - Last Filed: 03/13/23 12:05> Génesis Hickey <Melani Bond MD - Last Filed: 03/09/23 06:29> Consulting providers: Vishal Aden; Clayton Gastelum <Génesis Hickey MD - Last Filed: 03/13/23 12:05> Discharging Clinician: Génesis Hickey <Génesis Hickey MD - Last Filed: 03/13/23 12:05> Génesis Hickey <Melani Bond MD - Last Filed: 03/09/23 06:29> An
--- NOTE | 2023-03-06 09:14 | P.PNAN_ITS ---
Anes - Initial Pre Proc Eval Procedure: Operation Date: 03/06/23 07:30 Proposed Procedures p Repeat Section - Génesis Hickey MD Date/Time: 03/06/23 09:14 Surgeon: Génesis Hickey MD Pre Op Diagnosis: C/S Patient Data Age: 37 Gender: F Height: 1.55 m Weight: 84 kg Last Vital Signs Pulse 116 H 03/06/23 09:11 BP 108/57 L 03/06/23 09:11 Pulse Ox 94 03/06/23 09:11 O2 Del Method Room Air 03/06/23 06:17 Allergies Allergy/AdvReac Type Severity Reaction Status Date / Time No Known Allergies Allergy Verified 02/11/23 12:43 Home Medications Medication Instructions Recorded Confirmed Type Vitamin 1 tablet PO DAILY 10/28/22 02/11/23 History ferrous sulfate 1 tablet PO BID 10/28/22 02/11/23 History aspirin 81 mg capsule 81 mg PO DAILY 03/06/23 03/06/23 History ergocalciferol (vitamin D2) 1,250 03/06/23 03/06/23 History mcg (50,000 unit) capsule Patient hx anesthesia problems: none Family hx anesthesia problems: none Results Review: All pre-operative results and documents have been reviewed as part of the pre- operative evaluation. [facility] Past Medical History Medical History (Updated 03/06/23 @ 07:30 by Génesis Hickey MD) (normal spontaneous vaginal delivery) 2010 full-term demise Surgical History Surgical History (Updated 03/06/23 @ 08:57 by Génesis Hickey MD) History of section, low transverse x3 1 set of twins Family History Family History (Updated 02/11/23 @ 12:44 by Katiana Hood RN) Other No pertinent family history Social History Social History Smoking status: Never smoker Second hand tobacco smoke exposure: No Alcohol intake: never Substance use: never Do You Feel Safe in your Home?: Yes Lack of Transportation: No Lack of Food: Never True Current Housing: I Have Housing Concerned About Future Housing: No Difficulty Paying Gas/Electric Bills: No Difficulty Paying for Meds: No Currently Unemployed: No Education: Master's Degree or Higher Difficulty w/ Childcare or Family Care: No Living arrangements: with family Gender identity (if verbalized by the patient): Female Spiritual care concerns: No Anes - Eval Final PreProcedure Day of Procedure 03/06/23 09:14 Patient weight: obese Heart: regular rate and rhythm Lungs: clear to auscultation and normal air movement Airway: Mallampati scale class II Neurological: alert and oriented Last oral intake: >/= 8 hours ASA classification: II Emergent: no Anesthetic plan: proceed Anesthesia type and monitoring: regional spinal and standard monitoring Results Review: All pre-operative results and documents have been reviewed as part of the pre- operative evaluation. Informed Consent: The patient's anesthetic plan and its attendant risks and benefits were discussed with the patient/family/POA. Questions were solicited and answers provided to the satisfaction of the patient/family/POA.
[2023-03-06] MEDS: OXYTOCIN 30 UNITS/NS 500 ML 30 UNITS/500 ML BAG 125 UNITS IV CONT (10:07)
--- NOTE | 2023-03-06 11:15 | OBPPTRN ---
Patient transferred to post room # 282 via stretcher. Support person present. Oriented to unit, room, information board, rooming in, admission packet and security measures. Patient verbalizes understanding.
[2023-03-06] MEDS: LIDOCAINE 5% PATCH 1 PATCH TRANSDERM (11:23)
[2023-03-06] MEDS: KETOROLAC 30 MG/ML VIAL (*BKC) IV PUSH (11:23)
[2023-03-06] MEDS: ONDANSETRON INJ 4 MG/2 ML VIAL IV PUSH (13:10)
[2023-03-06] MEDS: DOCUSATE SODIUM 100 MG CAPSULE PO (16:27)
[2023-03-06] MEDS: DEXTROSE 5%/0.45% SOD CHL 1,000 ML 125 ML IV CONT ×2 (16:27→23:38)
[2023-03-06] MEDS: HYDROcodone/acetaminophen (*CRX) 5-325 MG TABLET 1 TAB PO (16:27)
[2023-03-06] MEDS: SIMETHICONE 80 MG TAB.CHEW PO (20:50)
[2023-03-06] MEDS: HYDROcodone/acetaminophen (*CRX) 10-325 MG TABLET 1 TAB PO (20:50)
[2023-03-07] MEDS: HYDROcodone/acetaminophen (*CRX) 10-325 MG TABLET 1 TAB PO ×2 (00:20→23:42)
[2023-03-07] MEDS: IBUPROFEN 600 MG TABLET PO ×3 (00:20→18:39)
[2023-03-07 00:30] VITALS: BP 121/71; PULSE 75; RESP 16; TEMP 36.8; O2SAT 94
[2023-03-07 04:00] VITALS: BP 116/70; PULSE 74; RESP 16; TEMP 37.1; O2SAT 96
[2023-03-07 04:39] LABS: Basophils Percent Auto 0.1 % (0.2-1.2); Eosinophils Absolute Auto 0.1 K/mm3 (0-0.3); Eosinophils Percent Auto 1.2 % (0-4.4); Hematocrit 35.8 % (37.0-47.0); Hemoglobin 11.3 g/dL (12.0-15.0); Immature Granulocyte Absolute 0.05 K/mm3 (0.00-0.031); Immature Granulocyte Percent A 0.6 % (0-0.5); Lymphocytes Absolute Auto 0.95 K/mm3 (0.9-3.2); Mean Corpuscular HGB Conc 31.6 g/dl (32-36); Mean Corpuscular Volume 88.8 fl (80-100); Mean Platelet Volume 12.4 fl (7.4-10.4); Monocytes Absolute Auto 0.8 K/mm3 (0.1-0.6); Monocytes Percent Auto 9.1 % (2.6-8.5); Neutrophils Absolute Auto 6.8 K/mm3 (1.3-6.7); Platelet Count Result 144 k/mm3 (150-375); Red Blood Count 4.03 M/mm3 (4.2-5.4); White Blood Count 8.7 K/mm3 (4.5-10.0)
[2023-03-07 08:21] VITALS: BP 111/71; PULSE 81; RESP 20; TEMP 37.2; O2SAT 100
[2023-03-07] MEDS: DOCUSATE SODIUM 100 MG CAPSULE PO (09:31)
[2023-03-07] MEDS: MULTIVIT/MIN/PREN/FOL AC/IRON TABLET 1 TAB PO (09:31)
[2023-03-07] MEDS: HYDROcodone/acetaminophen (*CRX) 5-325 MG TABLET 1 TAB PO ×3 (09:31→18:39)
[2023-03-07] MEDS: SIMETHICONE 80 MG TAB.CHEW PO ×3 (09:32→18:41)
--- NOTE | 2023-03-07 10:32 | PM.OBPNVD ---
OB - PN: Subj Subjective Date/time seen: 03/07/23 10:32 Patient comments: no complaints and pain well controlled baby status: doing well OB - PN: Obj Data Labs 03/07/23 03:50 Labs: Laboratory Results - last 24 hr 03/07/23 03:50 WBC 8.7 RBC 4.03 L Hgb 11.3 L Hct 35.8 L MCV 88.8 MCH 28.0 MCHC 31.6 L RDW 14.0 Plt Count 144 L MPV 12.4 H Immature Gran % (Auto) 0.6 H Neut % (Auto) 78.0 H Lymph % (Auto) 11.0 L Mcnairy % (Auto) 9.1 H Eos % (Auto) 1.2 Baso % (Auto) 0.1 L Lymph # (Auto) 0.95 Mcnairy # (Auto) 0.8 H Eos # (Auto) 0.1 Baso # (Auto) 0.0 Abs Immat Gran (auto) 0.05 H Absolute Neuts (auto) 6.8 H Absolute Nucleated RBC 0.0 Nucleated RBC % 0.0 OB - PN A/P Plan day: 1 Plan: routine care Time Spent With Patient Time: Total time spent is greater than 50% in coordination of care (as documented) at patient's floor/unit and/or counseling patient: Exam Narrative: inc c/d/i : Bimanual exam- vagina & uterus: other (Uterus firm, nt @U)
--- NOTE | 2023-03-07 13:14 | WPDANLDPN2 ---
Anes-Prog Note L&D Date/Time: 03/07/23 13:14 Comfortable throughout: section Neuraxial method: spinal Epidural/Spinal procedure site: clean & non-tender Neuro status: Neuro function grossly intact. Cardiovascular status: normal Respiratory status: normal Airway patency: baseline Mental status: baseline Post-Op hydration status: normal Vital Signs: Last Vital Signs Temp 98.9 F 03/07/23 08:21 Pulse 81 03/07/23 08:21 Resp 20 03/07/23 08:21 BP 111/71 03/07/23 08:21 Pulse Ox 100 03/07/23 08:21 O2 Del Method Room Air 03/07/23 04:00 Pain score (VAS): 0/10 I/O: Intake & Output 03/06/23 03/07/23 03/07/23 23:59 07:59 15:59 Intake Total 2040 300 Output Total 650 2200 Balance 1390 -1900 Post-procedural complaints: none Patient feedback: Patient satisfied with anesthetic care.
--- NOTE | 2023-03-07 13:14 | WPDANLDNPN2 ---
Anes-Prog Note L&D-Neuraxial Date/Time: 03/07/23 13:14 Neuraxial medications: intrathecal PF morphine Opiod-related complaints: none Patient feedback: Patient satisfied with post-operative pain management.
[2023-03-07] MEDS: LIDOCAINE 5% PATCH 1 PATCH TRANSDERM (13:44)
--- NOTE | 2023-03-07 14:53 | PC.NURSE ---
[id number] Introductions were made and Mother has been sleeping and father of baby is preparing infant to breastfeed. Reportedly mother is able to independently latch infant with appropriate positioning and alignment. Infant was placed near mothers breast and latched independently, then demonstrating frequent swallowing. Infant is currently meeting outcomes for weight, output, jaundice, blood sugar and feeding frequencies of 8-12 times in 24 hours. Mother declines any additional assistance or education at this time. Mother is encouraged to call for assistance if her doesn?t latch, pain with latching, infant doesn't wake to breastfeed, questions or concerns. Reported to the Primary RN.
[2023-03-07] MEDS: DOCUSATE SODIUM LIQ 100 MG/10 ML UDC PO (18:41)
[2023-03-07 19:49] VITALS: BP 116/74; PULSE 77; RESP 18; TEMP 36.8; O2SAT 100
[2023-03-08] MEDS: IBUPROFEN 600 MG TABLET PO ×3 (06:36→19:26)
[2023-03-08] MEDS: HYDROcodone/acetaminophen (*CRX) 10-325 MG TABLET 1 TAB PO ×6 (06:36→23:25)
--- NOTE | 2023-03-08 06:39 | P.PNOB_ITS ---
OB - PN: Subj Subjective Date/time seen: 03/08/23 06:39 Narrative: POD#2 Palmira reports doing well today. 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 Her pain is controlled. She is tolerating regular diet, voiding, passing gas, and ambulating without issues. She denies any issues with her incision. She is _ feeding. OB - PN: Obj Data Labs 03/07/23 03:50 OB - PN A/P Assessment and Plan (1) Status post repeat low transverse section: Code(s): Z98.891 - History of uterine scar from previous surgery Status: Acute Plan day: 2 Plan: routine care Comments: - pain control needs to be improved; encouraged to take pain meds regularly (only had one dose overnight) and will do the stronger dose today - hydration and ambulation encouraged Time Spent With Patient Time: Total time spent is greater than 50% in coordination of care (as documented) at patient's floor/unit and/or counseling patient: Review of Systems Constitutional: Constitutional: Denies chills, Denies fever(s) and Denies headache(s) Eyes: Eyes: Denies change in vision ENT: Denies dizziness and Denies headache(s) Cardiovascular: Cardiovascular: Denies chest pain, Denies palpitations and Denies dyspnea Respiratory: Respiratory: Denies cough and Denies dyspnea Gastrointestinal: Gastrointestinal: Denies nausea and Denies vomiting Genitourinary: Comments: normal bleeding Neurologic: Denies dizziness and Denies headache(s) Endocrine: Endocrine: Denies palpitations Exam Const: General: cooperative, comfortable and no acute distress Orientation/consciousness: patient oriented x3 Resp: Effort & Inspection: normal respiratory effort Auscultation: clear to auscultation bilaterally Cardio: Rate: regular rate GI: Inspection: non-distended and incision (covered with clean dressing) GI Palp: Yes abdominal tenderness (appropriate) and Yes Soft to palpation Auscultation: normal bowel sounds : Other: fundus firm Skin: General skin exam: normal color Neuro: General: patient oriented x3 Extrem: General: normal to inspection Psych: Appearance: grossly normal Affect: normal affect Attitude: cooperative
[2023-03-08 08:05] VITALS: BP 116/79; PULSE 72; RESP 16; TEMP 36.8; O2SAT 96
[2023-03-08] MEDS: MULTIVIT/MIN/PREN/FOL AC/IRON TABLET 1 TAB PO (08:08)
[2023-03-08] MEDS: DOCUSATE SODIUM LIQ 100 MG/10 ML UDC PO ×2 (08:08→19:43)
[2023-03-08] MEDS: SIMETHICONE 80 MG TAB.CHEW PO ×4 (09:30→19:43)
[2023-03-08] MEDS: LIDOCAINE 5% PATCH 1 PATCH TRANSDERM (16:26)
[2023-03-08 19:39] VITALS: BP 118/75; PULSE 71; RESP 18; TEMP 36.6; O2SAT 100
[2023-03-09] MEDS: IBUPROFEN 600 MG TABLET PO (05:03)
[2023-03-09] MEDS: HYDROcodone/acetaminophen (*CRX) 10-325 MG TABLET 1 TAB PO ×2 (05:03→08:27)
[2023-03-09] MEDS: SIMETHICONE 80 MG TAB.CHEW PO (05:03)
[2023-03-09] MEDS: DOCUSATE SODIUM LIQ 100 MG/10 ML UDC PO (08:27)
[2023-03-09] MEDS: MULTIVIT/MIN/PREN/FOL AC/IRON TABLET 1 TAB PO (08:28)
[2023-03-09 08:36] VITALS: BP 114/68; PULSE 59; RESP 18; TEMP 36.4; O2SAT 96
[2023-03-10 08:30] VITALS: BP 123/77; PULSE 78; RESP 18; TEMP 36.9; O2SAT 100
== END 2023-03-09 12:11 | disposition home or self-care (01) | DRG 540 ==
LOC: ANHLDR 08:58 → ANHOB2 03-07 15:06 → ANHLDR 03-11 11:45 → ANHOB2 03-11 11:45
PROVIDERS: Admitting Provider Obstetrics & Gynecology Gynecology; Visit Provider Obstetrics & Gynecology
PROC: 10D00Z1 Extraction of Products of Conception, Low, Open Approach (ICD-10-PCS; CPT 59514; principal; 2023-03-06 07:30)
DX: O34.211 Maternal care for low transverse scar from previous cesarean delivery (principal); Z37.0 Single live birth; Z3A.39 39 weeks gestation of pregnancy; O69.1XX0 Labor and delivery complicated by cord around neck, with compression, not applicable or unspecified
CPT/HCPCS: 36415; 85025; A9270; J0690; J1885; J2274; J2405; J2590; J7120

== ENCOUNTER 2023-08-28 19:00 | Emergency (ER) | payer OTHER, SELFPAY ==
[2023-08-28 19:13] VITALS: BP 113/59; PULSE 96; RESP 15; TEMP 37.4; O2SAT 97
--- NOTE | 2023-08-28 21:42 | ED.FEMALEGU ---
HPI - Female Genitourinary General Chief complaint: Urogenital-Female Stated complaint: painful urination, fever, h/a, bodyaches Time Seen by Provider: 08/28/23 21:17 Source: patient Mode of arrival: ambulatory Limitations: no limitations History of Present Illness HPI Narrative: PATIENT IS 38 YEARS OLD FEMALE CAME TO THE EMERGENCY ROOM WITH BURNING URINATION OVER THE LAST FEW DAYS, TODAY NOTED THAT SHE HAVE BODY ACHES AND SOME WARM FEELING. SHE DENIES ANY VOMITING. Related Data Home Medications Medication Instructions Recorded Confirmed Vitamin 1 tablet PO DAILY 10/28/22 02/11/23 ergocalciferol (vitamin D2) 1,250 03/06/23 03/06/23 mcg (50,000 unit) capsule Allergies Allergy/AdvReac Type Severity Reaction Status Date / Time No Known Allergies Allergy Verified 02/11/23 12:43 Review of Systems Review of Systems: All systems reviewed & are unremarkable except as noted in HPI and below PMFSH Past Medical History Medical History (normal spontaneous vaginal delivery) 2010 full-term demise Surgical History Surgical History History of section, low transverse x3 1 set of twins Family History Family History Other No pertinent family history Social History Social History Smoking status: Never smoker Second hand tobacco smoke exposure: No Alcohol intake: never Substance use: never Do You Feel Safe in your Home?: Yes Lack of Transportation: No Lack of Food: Never True Current Housing: I Have Housing Concerned About Future Housing: No Difficulty Paying Gas/Electric Bills: No Difficulty Paying for Meds: No Currently Unemployed: No Education: Master's Degree or Higher Difficulty w/ Childcare or Family Care: No Living arrangements: with family Gender identity (if verbalized by the patient): Female Spiritual care concerns: No Exam Narrative: GENERAL APPEARANCE: WELL-DEVELOPED, WELL-NOURISHED SKIN: NORMAL COLOR HEAD: NORMOCEPHALIC, NONTRAUMATIC EYES: CLEAR CONJUNCTIVA ENT: OROPHARYNX NORMAL, EARS NORMAL, NOSE NORMAL NECK: SUPPLE, NONTENDER CHEST AND RESPIRATORY: AIRWAY PATENT, NO RESPIRATORY DISTRESS, NO ACCESSORY MUSCLE USE HEART: REGULAR RATE/RHYTHM ABDOMEN: SOFT, NONTENDER, NO ORGANOMEGALY, QUIET BOWEL SOUNDS VASCULAR: NORMAL PERIPHERAL PULSES, NORMAL CAPILLARY REFILL. 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, NO GROSS MOTOR DEFICIT Course Vital Signs Vital signs: Vital Signs Temperature 37.4 C 08/28/23 19:13 Pulse Rate 96 08/28/23 19:13 Respiratory Rate 15 08/28/23 19:13 Blood Pressure 113/59 L 08/28/23 19:13 Pulse Oximetry 97 08/28/23 19:13 Oxygen Delivery Room Air 08/28/23 19:13 Temperature 37.4 C 08/28/23 19:13 Pulse Rate 88 08/28/23 21:56 Respiratory Rate 18 08/28/23 21:56 Blood Pressure 112/84 08/28/23 21:56 Pulse Oximetry 100 08/28/23 21:56 Oxygen Delivery Room Air 08/28/23 19:13 MDM - Female Genitourinary MDM Narrative Medical decision making narrative: URINARY TRACT INFECTION IS MY CONCERN. URINALYSIS ORDERED. TYLENOL AND IBUPROFEN ORDERED. Differential Diagnosis Differential diagnosis: Likely urinary tract infection and cystitis Lab Data Labs: Lab Results 08/28/23 Range/Units 21:51 Urine Color Yellow (Yellow) Urine Appearance Cloudy H (Clear) Urine pH 5.5 (5.0-9
[2023-08-28] MEDS: ACETAMINOPHEN 325 MG TABLET 650 MG PO (21:52)
[2023-08-28] MEDS: IBUPROFEN 600 MG TABLET PO (21:52)
[2023-08-28 21:56] VITALS: BP 112/84; PULSE 88; RESP 18; O2SAT 100
[2023-08-28 22:06] LABS: Appearance Urine Cloudy (Clear); Bacteria Urine 4+ /hpf; Bilirubin Urine Negative (Negative); Blood Urine Trace (Negative); Color Urine Yellow (Yellow); Glucose Urine UA Negative (Negative); Ketones Urine Trace mg/dL (Negative); Leukocyte Esterase Ur 2+ LEU/UL (Negative); Nitrate Urine Positive (Negative); Non Pathogenic Casts 0-2; Protein Urine 1+ mg/dL (Negative); RBC Urine 0-2 /hpf (0-2); Specific Grav Ur 1.023 (1.001-1.035); Squamous Epithelial Cell Urine None Seen /hpf (Few); Urobilinogen Urine 0.2 mg/dL (<2.0); WBC Urine >100 /hpf (0-3); pH Urine 5.5 (5.0-9.0)
[2023-08-28 22:07] LABS: Add Urine Microscopic? YES
[2023-08-28] MEDS: NITROFURANTOIN MONOHYD MACROCR 100 MG CAP PO (22:54)
[2023-08-28] MEDS: PHENAZOPYRIDINE HCL 100 MG TABLET 200 MG PO (22:54)
== END 2023-08-28 23:06 | disposition home or self-care (01) ==
PROVIDERS: Emergency Provider Emergency Medicine
DX: N39.0 Urinary tract infection, site not specified (principal)
CPT/HCPCS: 81001; 87077; 87086; 87088; 87186; 99283; A9270

== ENCOUNTER 2023-11-03 18:51 | Emergency (ER) | payer OTHER, SELFPAY ==
[2023-11-03 19:01] VITALS: BP 111/74; PULSE 71; RESP 15; TEMP 36.7; O2SAT 100
[2023-11-04 02:29] VITALS: BP 122/72; PULSE 60; RESP 18; O2SAT 100
[2023-11-04 02:52] LABS: Basophils Percent Auto 0.5 % (0.2-1.2); Eosinophils Absolute Auto 0.2 K/mm3 (0-0.3); Eosinophils Percent Auto 5.1 % (0-4.4); Hematocrit 38.3 % (37.0-47.0); Hemoglobin 12.4 g/dL (12.0-15.0); Immature Granulocyte Absolute 0.01 K/mm3 (0.00-0.031); Immature Granulocyte Percent A 0.2 % (0-0.5); Lymphocytes Absolute Auto 2.04 K/mm3 (0.9-3.2); Lymphocytes Percent Auto 46.9 % (18.3-44.2); Mean Corpuscular HGB Conc 32.4 g/dl (32-36); Mean Corpuscular Hemoglobin 27.6 pg (26-34); Mean Corpuscular Volume 85.3 fl (80-100); Mean Platelet Volume 10.8 fl (7.4-10.4); Monocytes Absolute Auto 0.5 K/mm3 (0.1-0.6); Monocytes Percent Auto 11.7 % (2.6-8.5); Neutrophils Absolute Auto 1.6 K/mm3 (1.3-6.7); Neutrophils Percent Auto 35.6 % (45.5-73.1); Platelet Count Result 205 k/mm3 (150-375); Red Blood Count 4.49 M/mm3 (4.2-5.4); Red Cell Distribution Width 13.4 % (11.5-14.5); White Blood Count 4.4 K/mm3 (4.5-10.0)
--- NOTE | 2023-11-04 02:57 | ED.BACK ---
HPI - Back Pain/Injury General Chief Complaint: Back Pain/Injury Stated Complaint: MID BACK PAIN X3D Time Seen by Provider: 11/04/23 02:32 History of Present Illness HPI Narrative: Patient is a 38-year-old female who presents to the emergency department this evening complaining of bilateral lower back/flank pain and burning with urination. Patient admits to history of pyelonephritis and states that this feels similar. Denies any fevers or chills at home, any nausea or vomiting, denies any abdominal pain. Patient states symptoms started on Friday and have been progressively getting worse for the past 3 days. No additional symptoms or concerns at this time. Related Data Home Medications Medication Instructions Recorded Confirmed Vitamin 1 tablet PO DAILY 10/28/22 02/11/23 ergocalciferol (vitamin D2) 1,250 03/06/23 03/06/23 mcg (50,000 unit) capsule Allergies Allergy/AdvReac Type Severity Reaction Status Date / Time No Known Allergies Allergy Verified 02/11/23 12:43 Review of Systems Review of Systems: All systems are reviewed and are negative unless stated otherwise in the HPI. [facility] Past Medical History Medical History (normal spontaneous vaginal delivery) 2010 full-term demise Surgical History Surgical History History of section, low transverse x3 1 set of twins Family History Family History Other No pertinent family history Social History Social History Smoking status: Never smoker Second hand tobacco smoke exposure: No Alcohol intake: never Substance use: never Do You Feel Safe in your Home?: Yes Lack of Transportation: No Lack of Food: Never True Current Housing: I Have Housing Concerned About Future Housing: No Difficulty Paying Gas/Electric Bills: No Difficulty Paying for Meds: No Currently Unemployed: No Education: Master's Degree or Higher Difficulty w/ Childcare or Family Care: No Living arrangements: with family Gender identity (if verbalized by the patient): Female Spiritual care concerns: No Exam Narrative: General: Alert, awake, afebrile, in no acute distress. HEENT: PERRL, no rhinorrhea, no post nasal drip, oropharynx clear. Cardiovascular: Regular rate and rhythm, no murmurs, rubs or gallops, no peripheral edema. Respiratory: Clear to auscultation bilaterally, no tachypnea, no wheezing, no rhonchi, no rubs, no respiratory distress. Abdomen: Soft, nontender, nondistended, no rebound, no guarding, no peritoneal signs. Musculoskeletal: No joint swelling or deformity, normal muscle tone. Skin: No rashes or petechia, no signs of infection. Neurological: Alert and oriented to person, place, and time. Follows all commands. No focal deficits, speech is clear and fluent. Course Vital Signs Vital signs: Vital Signs Temperature 98.1 F 11/03/23 19:01 Pulse Rate 71 11/03/23 19:01 Respiratory Rate 15 11/03/23 19:01 Blood Pressure 111/74 11/03/23 19:01 Pulse Oximetry 100 11/03/23 19:01 Oxygen Delivery Room Air 11/03/23 19:01 Temperature 98.1 F 11/03/23 19:01 Pulse Rate 60 11/04/23 02:29 Respiratory Rate 18 11/04/23 02:29 Blood Pressure 122/72 11/04/23 02:29 Pulse Oximetry 100 11/04/23 02:29 Oxygen Delivery Room Air 11/03/23 19:01 MDM - Back Pain/Injury MDM Narrative Medical decision making narrative: The patient was evaluated by myself in the emergency department. History is obtained from patient who is an independent historian and physical exam was performed. External medical records were reviewed at this time. IV was established and pertinent tests were ordered. Patient was administered 1 L IV fluid bolus with normal saline. Labor
[2023-11-04 02:58] LABS: Add Urine Microscopic? YES; Appearance Urine Cloudy (Clear); Bacteria Urine 4+ /hpf; Bilirubin Urine Negative (Negative); Blood Urine 1+ (Negative); Color Urine Yellow (Yellow); Glucose Urine UA Negative (Negative); Ketones Urine Negative (Negative); Leukocyte Esterase Ur 2+ LEU/UL (Negative); Nitrate Urine Positive (Negative); Non Pathogenic Casts 0-2; Protein Urine 1+ mg/dL (Negative); RBC Urine 0-2 /hpf (0-2); Specific Grav Ur 1.027 (1.001-1.035); Squamous Epithelial Cell Urine Few /hpf (Few); Urobilinogen Urine 0.2 mg/dL (<2.0); WBC Urine >100 /hpf (0-3); pH Urine 5.5 (5.0-9.0)
[2023-11-04 03:02] LABS: SPREG INTERNAL CONTROL Positive; Serum Qual hCG Negative
[2023-11-04 03:03] LABS: Alanine Aminotransferase 18 U/L (6-35); Albumin Level 4.2 g/dL (3.5-5.1); Alkaline Phosphatase 56 U/L (38-126); Anion Gap 9 mmol/L (4-12); Aspartate Amino Transferase 27 U/L (14-36); Bilirubin,Total 0.3 mg/dL (0.2-1.3); Blood Urea Nitrogen 12 mg/dL (7-17); Carbon Dioxide 25 mmol/L (22-30); Chloride 104 mmol/L (98-107); Estimated CRCL calculation 85 ml/min; Estimated Glomerular Filt Rate > 60; Glucose 108 mg/dL (65-110); Potassium 3.4 mmol/L (3.4-5.0); Sodium 138 mmol/L (137-145)
[2023-11-04] MEDS: SODIUM CHLORIDE 0.9% IV 1,000 ML 999 ML IV CONT (03:21)
== END 2023-11-04 04:42 | disposition home or self-care (01) ==
PROVIDERS: Emergency Provider Emergency Medicine
DX: N39.0 Urinary tract infection, site not specified (principal)
CPT/HCPCS: 36415; 80053; 81001; 84703; 85025; 87077; 87086; 87088; 87186; 96365; 99284; J0696; J7030

== ENCOUNTER 2023-12-18 16:55 | Emergency (ER) | payer OTHER, SELFPAY ==
--- NOTE | ~2023-12-18 | CT_ITS ---
CLINICAL INDICATION: Pyelonephritis suspected clinically. COMPARISON: 12/20/2021. TECHNIQUE: An enhanced CT of the abdomen and pelvis was performed utilizing multislice spiral Breezy ue reconstructed at 5 mm slice thickness. Coronal and sagittal reconstructions were performed. This CT examination was performed utilizing dose reduction techniques. DLP: 532.86 mGy-cm FINDINGS/OBSERVATIONS: Visualized lower thorax:The bilateral lung bases are clear. The heart is of normal size, without pericardial effusion. Liver: The liver is not enlarged measuring 17 cm in longitudinal dimension. Gallbladder and biliary system: The gallbladder is only minimally distended, limiting its evaluation. Pancreas: Pancreas is unremarkable, enhancing homogeneously without ductal dilatation. Spleen: Multiple splenules are identified. Spleen otherwise enhances homogeneously. Kidneys: No striated enhancement is appreciated within the bilateral kidneys to suggest the presence of pyelonephritis. Bulky calcifications within the upper pole of the right kidney. Multiple subcentimeter rounded foci of decreased attenuation, statistically representing cysts but to o small to characterize. No hydronephrosis is present. Adrenal glands: Unremarkable Gastrointestinal tract: Multiple loops of fluid-filled small and large bowel without dilatation Fecal stasis within the rectum. Appendix:The air-filled appendix is of normal caliber (series 3, image 77). Vasculature: Unremarkable. Lymph nodes: No pathologically enlarged or morphologically suspicious lymph nodes within the retroper itoneum or at the root of mesentery. Pelvic structures:The uterus is anteverted and retroflexed, and somewhat enlarged and nodular suggest ing fibroid disease. The bladder is minimally distended with thickened sorensen and surrounding inflammatory change, findings suggesting cystitis. Body wall and musculoskeletal: Rectus diastases. No significant degenerative disease within the lumbosacral spine IMPRESSION: No CT evidence to suggest the presence of pyelonephritis. Findings consistent with cystitis. No obstructive uropathy. Nonobstructing renal calculi. Reviewed, dictated and finalized at location A.
[2023-12-18 17:01] VITALS: PULSE 109; RESP 16; TEMP 37.6; O2SAT 100
[2023-12-18 17:25] LABS: Add Urine Microscopic? YES; Appearance Urine Turbid (Clear); Bacteria Urine 4+ /hpf; Bilirubin Urine Negative (Negative); Blood Urine Trace (Negative); Color Urine Yellow (Yellow); Glucose Urine UA Negative (Negative); Ketones Urine 2+ mg/dL (Negative); Leukocyte Esterase Ur 3+ LEU/UL (Negative); Nitrate Urine Positive (Negative); Non Pathogenic Casts 0-2; Protein Urine 1+ mg/dL (Negative); Specific Grav Ur 1.025 (1.001-1.035); Squamous Epithelial Cell Urine None Seen /hpf (Few); WBC Urine >100 /hpf (0-3); pH Urine 7.5 (5.0-9.0)
[2023-12-18 17:38] LABS: BEDSIDEPREGUCG Negative (Negative)
[2023-12-18 17:40] VITALS: BP 109/62; PULSE 105; RESP 16; O2SAT 99
[2023-12-18 17:47] VITALS: BP 105/55; PULSE 105; RESP 16; O2SAT 100
--- NOTE | 2023-12-18 17:56 | ED.FEMALEGU ---
HPI - Female Genitourinary General Chief complaint: Urogenital-Female Stated complaint: burning with urination, VILLA, fever Time Seen by Provider: 12/18/23 17:21 History of Present Illness HPI Narrative: Patient is a 38-year-old who presents to the ER with fever, lower back pain, and frequent urination. She also endorses headache and sore throat. Patient reports she had a UTI approximately 2 months ago and gets them frequently. She denies any concern for STDs. Patient reports her back pain and fever started yesterday, along with her sore throat. She denies any other medical history. Patient denies chest pain, shortness of breath, or noticeable blood in her urine. Related Data Home Medications Medication Instructions Recorded Confirmed Vitamin 1 tablet PO DAILY 10/28/22 02/11/23 ergocalciferol (vitamin D2) 1,250 03/06/23 03/06/23 mcg (50,000 unit) capsule Allergies Allergy/AdvReac Type Severity Reaction Status Date / Time No Known Allergies Allergy Verified 02/11/23 12:43 Review of Systems Review of Systems: All systems reviewed & are unremarkable except as noted in HPI and below PMFSH Past Medical History Medical History (normal spontaneous vaginal delivery) 2011 full-term demise Surgical History Surgical History History of section, low transverse x3 1 set of twins Family History Family History Other No pertinent family history Social History Social History Smoking status: Never smoker Second hand tobacco smoke exposure: No Alcohol intake: never Substance use: never Do You Feel Safe in your Home?: Yes Lack of Transportation: No Lack of Food: Never True Current Housing: I Have Housing Concerned About Future Housing: No Difficulty Paying Gas/Electric Bills: No Difficulty Paying for Meds: No Currently Unemployed: No Education: Master's Degree or Higher Difficulty w/ Childcare or Family Care: No Living arrangements: with family Gender identity (if verbalized by the patient): Female Spiritual care concerns: No Exam Narrative: GENERAL: Well appearing, well-nourished, mildly toxic d/t fever and high HR, in no acute distress. HEAD: Normocephalic, atraumatic. Pt's tonsils are red and swollen. No noticeable pus in pt's throat. NECK: Supple. No adenopathy, no masses. No palpable lymph nodes RESPIRATORY: Airway patent, respirations nonlabored. Clear to auscultation bilaterally, no rales, rhonchi, wheezing. CARDIOVASCULAR: Tachycardic and rhythm without murmurs, rubs, or gallops. Peripheral pulses 2+ and equal bilaterally. ABDOMINAL: Soft, mildly tender in bilateral lower quadrants, nondistended, no hepatosplenomegaly. Normoactive BS. MUSCULOSKELETAL: Moves all extremities. Strength/ROM intact without gross deformities. SKIN: Hot, dry, normal color. No rashes. NEURO: A&O X3. Speech clear. Cranial nerves II-XII grossly intact. Steady gait. No ataxic movements. PSYCHIATRIC: Appropriate mood and affect. Normal interaction. Course Vital Signs Vital signs: Vital Signs Temperature 37.6 C H 12/18/23 17:01 Pulse Rate 109 H 12/18/23 17:01 Respiratory Rate 16 12/18/23 17:01 Pulse Oximetry 100 12/18/23 17:01 Oxygen Delivery Room Air 12/18/23 17:01 Temperature 37.2 C 12/18/23 21:11 Pulse Rate 82 12/18/23 21:11 Respiratory Rate 15 12/18/23 21:11 Blood Pressure 119/63 12/18/23 18:00 Pulse Oximetry 98 12/18/23 21:11 Oxygen Delivery Room Air 12/18/23 17:01 MDM - Female Genitourinary MDM Narrative Medical decision making narrative: Patient is a 38-year-old who presents to the ER with fever, lower back pain, and frequent urination. She
[2023-12-18 18:00] VITALS: BP 119/63; PULSE 99; RESP 20; TEMP 38.8; O2SAT 100
[2023-12-18] MEDS: ACETAMINOPHEN 500 MG TABLET 1000 MG PO (18:18)
[2023-12-18 18:23] LABS: Basophils Percent Auto 0.3 % (0.2-1.2); Eosinophils Percent Auto 0.1 % (0-4.4); Hematocrit 37.3 % (37.0-47.0); Hemoglobin 12.1 g/dL (12.0-15.0); Immature Granulocyte Absolute 0.02 K/mm3 (0.00-0.031); Immature Granulocyte Percent A 0.3 % (0-0.5); Lymphocytes Absolute Auto 0.78 K/mm3 (0.9-3.2); Mean Corpuscular HGB Conc 32.4 g/dl (32-36); Mean Corpuscular Hemoglobin 27.3 pg (26-34); Mean Corpuscular Volume 84.2 fl (80-100); Mean Platelet Volume 12.2 fl (7.4-10.4); Monocytes Absolute Auto 0.4 K/mm3 (0.1-0.6); Monocytes Percent Auto 5.9 % (2.6-8.5); Neutrophils Absolute Auto 5.8 K/mm3 (1.3-6.7); Neutrophils Percent Auto 82.4 % (45.5-73.1); Platelet Count Result 173 k/mm3 (150-375); Red Blood Count 4.43 M/mm3 (4.2-5.4); White Blood Count 7.1 K/mm3 (4.5-10.0)
[2023-12-18 18:32] LABS: Lactic Acid Reflex 1.5 mmol/L (0.7-2.0)
[2023-12-18 18:35] LABS: Prothrombin Time 14.1 Seconds (11.1-14.7)
[2023-12-18 18:36] LABS: Alanine Aminotransferase 16 U/L (6-35); Albumin Level 4.5 g/dL (3.5-5.1); Alkaline Phosphatase 50 U/L (38-126); Anion Gap 8 mmol/L (4-12); Aspartate Amino Transferase 22 U/L (14-36); Bilirubin,Total 0.3 mg/dL (0.2-1.3); Blood Urea Nitrogen 13 mg/dL (7-17); CRP 4.7 mg/dL (<1.0); Calcium 8.8 mg/dL (8.4-10.2); Carbon Dioxide 25 mmol/L (22-30); Chloride 102 mmol/L (98-107); Estimated CRCL calculation 97 ml/min; Estimated Glomerular Filt Rate > 60; Glucose 119 mg/dL (65-110); Partial Thromboplastin Time 32.4 Seconds (22.3-36.8); Potassium 3.9 mmol/L (3.4-5.0); Sodium 135 mmol/L (137-145)
[2023-12-18] MEDS: SODIUM CHLORIDE 0.9% IV 2,200 ML/1,000 ML BAG 999 ML IV CONT ×3 (18:42→20:08)
[2023-12-18 18:53] LABS: Strep Group A RT-PCR DETECTED (Negative)
[2023-12-18 19:05] LABS: Influenza A QL RT-PCR Negative (Negative); Influenza B QL RT-PCR Negative (Negative); RSV RNA, RT-PCR Negative (Negative); SARS-CoV-2 RNA PCR Negative (Negative)
[2023-12-18] MEDS: KETOROLAC 15 MG/ML VIAL (*BKC) IV PUSH (19:47)
--- NOTE | 2023-12-18 20:09 | PC.NURSE ---
Patient received 2200 mL, not 3000mL.
[2023-12-18 21:11] VITALS: PULSE 82; RESP 15; TEMP 37.2; O2SAT 98
[2023-12-18 22:11] VITALS: BP 118/78; PULSE 83; RESP 15; O2SAT 100
== END 2023-12-18 22:12 | disposition home or self-care (01) ==
PROVIDERS: Preventive Medicine Aerospace Medicine; Emergency Provider Registered Nurse
DX: J02.0 Streptococcal pharyngitis (principal); N39.0 Urinary tract infection, site not specified; Z20.822 Contact with and (suspected) exposure to COVID-19; N20.0 Calculus of kidney
CPT/HCPCS: 36415; 74177; 80053; 81001; 81025; 83605; 85025; 85610; 85730; 86140; 87040; 87077; 87086; 87186; 87637; 87651; 96361; 96365; 96375; 99284; A9270; J0696; J1885; J7030; J7050; Q9967

== ENCOUNTER 2024-02-09 08:36 | Outpatient (CLI) | payer OTHER, SELFPAY ==
--- NOTE | ~2024-02-09 | XR_ITS ---
EXAMINATION: XR lumbar spine 2-3V DATE: 02/09/2024 08:55 INDICATION: Low back pain TECHNIQUE: Anteroposterior and lateral views of the lumbar spine, and cone-down lateral view of the l umbosacral junction were obtained. COMPARISON: 06/27/1959 FINDINGS: 9 degrees lumbar levocurvature. Sagittal alignment is normal. Vertebral body and disc heights are nor mal. Sacral arches are intact. No evident fracture. Moderate bilateral sacroiliac osteoarthritis brooke g with bilateral osteitis condense and celiac. Cholecystectomy clips in right upper quadrant. IMPRESSION: 1. 9 degrees lumbar levocurvature and moderate bilateral sacroiliac osteoarthritis.. Reviewed, dictated and finalized at location A. TECHNICIAN IMPRESSION: 1. 9 degrees lumbar levocurvature and moderate bilateral sacroiliac osteoarthri tis..
--- NOTE | ~2024-02-09 | XR_ITS ---
Right Knee Technique: AP, lateral, and sunrise views were obtained. Clinical History: Pain Findings: No fracture or dislocation is seen. Osseous alignment is anatomic. Joint spaces are preserv ed without degenerative or erosive change. Soft tissues are unremarkable. No joint effusion is seen. Impression: Unremarkable right knee radiographs. Reviewed, dictated and finalized at location . [employer] Impression: Unremarkable right knee radiographs.
== END 2024-02-09 08:37 | disposition home or self-care (01) ==
PROVIDERS: PCP Family Medicine; Visit Provider Family Medicine
DX: M43.8X6 Other specified deforming dorsopathies, lumbar region (principal); M46.1 Sacroiliitis, not elsewhere classified; M25.561 Pain in right knee
CPT/HCPCS: 72100; 73562

== ENCOUNTER 2024-03-30 08:00 | Outpatient (RCR) | payer BC, OTHER, SELFPAY ==
--- NOTE | 2024-02-24 09:45 | OPREHPOC ---
Outpatient Therapy Plan of Care This is a Multidisciplinary Plan of Care that may contain components documented by all disciplines (PT, OT, and ST.) PT Problem 1 PT Problem #1 Knowledge Deficit PT Goal 1 Goal / Goal Update [place] with HEP Target Visit 4 PT Goal 2 Goal / Goal Update Patient will report no pain greater than 2/10 for 2 consecutive weeks Target Visit 8 PT Problem 2 PT Problem #2 Impaired Range of Motion PT Goal 1 Goal / Goal Update 1. Demonstrate 40+ degrees melva hip abduction to improve gross hip mobility for reduced lumbopelvic rhythm disruption 2. Improve melva piriformis restriction to minimal to reduce rotational pull of hip and sciatic nerve Target Visit 8 PT Problem 3 PT Problem #3 Impaired Strength PT Goal 1 Goal / Goal Update 1. Improve lower abdominal strength to 4./5to improve lumbar stability 2. Improve melva hip abduction strength to 4/5 to improve lateral pelvic stability with ADLs Target Visit 8
--- NOTE | 2024-02-24 09:45 | PTOPEVAL1 ---
Assessment and note entered by Bg Shaikh, PT Evaluation Information Assessment Status Evaluation ICD-10 Condition Codes (PT) Pain in low back M54.50,Pain in right knee M25.561 Onset 2+years Subjective Information Reports that her back pain is across ow back but also up her spine. Denies radicular pain but at times feels strain in the back of her legs if she stands for a long time. Occasionally has pain at night but most of her pain is when she is up and working. Reported Pain Level Pain Score 7: Self Report Assessment PT Clinical Summary Patient presents with signs and symptoms of lumbar stenotic type pain with accompanied anterior knee pain. Patient will benefit from skilled therapy to address deficits in hip mobility, strength ma dn knee stabilization to reduce pain and improve gross stabilization of melva LEs. Plan of Care Interventions Electrical Stimulation,Gait Training,Manual Therapy,Neuro Re-education,Therapeutic Activities, Therapeutic Exercise PT Services Indicated Yes Treatment Frequency and 1-2x/week for 8 visits Duration These treatments will address the objective and functional deficits as defined above. The patient will be advanced safely and appropriately in order for the patient to progress towards his/her prior level of function. Additional exercises will be introduced and as well as a comprehensive home exercise program upon discharge, if needed, ?to ensure carryover of functional gains achieved in the clinic. This treatment plan has been reviewed and agreement upon by the patient.
--- NOTE | 2024-03-30 08:52 | OPREHPOC ---
Outpatient Therapy Plan of Care This is a Multidisciplinary Plan of Care that may contain components documented by all disciplines (PT, OT, and ST.) PT Problem 1 PT Problem #1 Knowledge Deficit PT Goal 1 Goal / Goal Update [place] with HEP Target Visit 4 Progress Met PT Goal 2 Goal / Goal Update Patient will report no pain greater than 2/10 for 2 consecutive weeks Target Visit 8 - Met PT Problem 2 PT Problem #2 Impaired Range of Motion PT Goal 1 Goal / Goal Update 1. Demonstrate 40+ degrees melva hip abduction to improve gross hip mobility for reduced lumbopelvic rhythm disruption 2. Improve melva piriformis restriction to minimal to reduce rotational pull of hip and sciatic nerve Target Visit 8- Met PT Problem 3 PT Problem #3 Impaired Strength PT Goal 1 Goal / Goal Update 1. Improve lower abdominal strength to 4./5to improve lumbar stability 2. Improve melva hip abduction strength to 4/5 to improve lateral pelvic stability with ADLs Target Visit 8 - Met
--- NOTE | 2024-03-30 08:52 | PTOPDC ---
Assessment and note entered by Bg Shaikh, PT Evaluation Information Assessment Status Discharge ICD-10 Condition Codes (PT) Pain in low back M54.50,Pain in right knee M25.561 Onset 2+years Subjective Information Reports that she has consistently been doing better with pain and function. She has a good understanding of exercises and home performance. Reports that she still has occasional pain but overall is better. Reported Pain Level Pain Score 0: Self Report Assessment PT Clinical Summary Patient has made excellent progress with core strength and hip ROM. Overall she has subjectively seen consistent progress at this time and is suitable for discharge to [facility]. We reviewed [facility] with no questions this date. Plan of Care PT Services Indicated Yes
== END 2024-03-30 10:01 | disposition home or self-care (01) ==
LOC: ANHGOSHPT 08:00
PROVIDERS: PCP Family Medicine; Visit Provider Family Medicine
DX: M54.50 Low back pain, unspecified (principal); M25.561 Pain in right knee
CPT/HCPCS: 97014; 97110; 97140; 97161; 97530; G0283

== ENCOUNTER 2024-12-30 18:22 | Emergency (ER) | payer BC, SELFPAY ==
[2024-12-30 18:34] VITALS: BP 100/61; PULSE 76; RESP 18; TEMP 36.8; O2SAT 100
--- NOTE | 2024-12-30 18:48 | ED_ITS ---
HPI - Female Genitourinary General Chief complaint: Urogenital-Female Stated complaint: Vomiting/Back/Abdominal Pain Time Seen by Provider: 12/30/24 18:45 Source: patient, RN notes reviewed and old records reviewed Mode of arrival: ambulatory Limitations: no limitations History of Present Illness HPI Narrative: 39 year old female presents to express care with complaints of nausea and vomiting today with lower back pain and also lower abdominal pain. Patient reports no fevers chills or sweats. Patient reports history of UTI's and was seen in July by urology in [facility] and was thought to have kidney stone but when they went in to remove it it was not there, last follow up was in October. Patient has history of pyelonephritis and percutaneous drainage of right kidney in 2021. Patient reports that discomfort started on Friday but no burning with urination reports increase in symptoms today wuth the nausea and vomiting. Patient reports no fevers chills or sweats. MD elicited complaint: UTI, back pain and other (suprapubic pain nausea and vomiting) Pertinent past history: pyelonephritis and other (UTI , has followed with urology last in October of 2024) Onset (ago): day(s) (2 days with increased symptoms today) Location of symptoms: suprapubic and low back Severity: moderate Vaginal discharge: none Vaginal bleeding: none Related Data Allergies Allergy/AdvReac Type Severity Reaction Status Date / Time No Known Allergies Allergy Verified 12/30/24 18:37 Review of Systems Review of Systems: CONSTITUTIONAL: Denies fever, chills, or sweats. CARDIOVASCULAR: Denies chest pain, palpitations, or edema. RESPIRATORY: Denies cough or dyspnea. GASTROINTESTINAL: reports suprapubic abdominal pain, nausea, vomiting, no diarrhea. GENITOURINARY: Reports no dysuria, frequency, urgency. reports low back pain and suprapubic pain, no hematuria. SKIN: Denies rash or itching. MUSCULOSKELETAL: reports low back pain or myalgia. Denies CVA tenderness NEUROLOGIC: Denies headache All systems reviewed & are unremarkable except as noted in HPI and below PMFSH Past Medical History Medical History Urinary tract infection Right trigeminal neuralgia Anemia affecting (~10/2022) Pyelonephritis (~2021) Kidney abscess (~2021) Surgical History Surgical History Hx of drainage of abscess (~12/2021) percutaneous drainage of right kidney abscess (normal spontaneous vaginal delivery) 2010 full-term demise History of section, low transverse x3 - 2011, 2012, 2017, 2022 1 set of twins Family History Family History Father Cerebrovascular accident Grandparent Cerebrovascular accident Other No pertinent family history Social History Social History Social History: Palmira is , she has 5 children ages 12 to 1. Smoking status: Never smoker Second hand tobacco smoke exposure: No Alcohol intake: never Substance use: never Do You Feel Safe in your Home?: Yes Lack of Transportation: No Lack of Food: Never True Current Housing: I Have Housing Concerned About Future Housing: No Difficulty Paying Gas/Electric Bills: No Difficulty Paying for Meds: No Currently Unemployed: No Education: Master's Degree or Higher Difficulty w/ Childcare or Family Care: No Living arrangements: with family Gender identity (if verbalized by the patient): Female Spiritual care concerns: No Comments At time of signature, agree with nursing past medical, surgical, social and family history. There is no relevant family history pertinent to the presenting complaint Exam Narrative: GENERAL:Ill-appearing, well-nourished, and in some acute distress. HEAD: Normocephalic, atraumatic. NECK: Supple.no lymphadenopathy CHEST: Clear to auscultation. No respiratory distress. SAO2 100% on room air HEART: Regular rate and rhythm. No murmur heard. Normal peripheral pulses. ABDOMEN: Soft, tender suprapubic,, nondistended, normal active bowel sounds. No CVA tenderness, low back pain reported, no burning with urination and no visible blood in urine EXTREMITIES: Normal range of motion. No edema. SKIN: Warm, dry, no rash. NEURO: No focal deficits. Alert and oriented x3. Course Course Emergency Course: Patient is aware of diagnosis, understands and agrees to treatment plan.? Anticipatory guidance given.? Patient agrees to follow-up as directed and is aware of reasons to seek care at the emergency department. Portions of this record may have been created with voice recognition software Level of Care: Express Care Visit Vital Signs Vital signs: Vital Signs Temperature 36.8 C 12/30/24 18:34 Pulse Rate 76 12/30/24 18:34 Respiratory Rate 18 12/30/24 18:34 Blood Pressure 100/61 12/30/24 18:34 Pulse Oximetry 100 12/30/24 18:34 Oxygen Delivery Room Air 12/30/24 18:34 Temperature 36.8 C 12/30/24 18:34 Pulse Rate 76 12/30/24 18:34 Respiratory Rate 18 12/30/24 18:34 Blood Pressure 100/61 12/30/24 18:34 Pulse Oximetry 100 12/30/24 18:34 Oxygen Delivery Room Air 12/30/24 18:34 reviewed MDM - Female Genitourinary MDM Narrative Medical decision making narrative: Exam findings and UA show no acute concerns or changes; patient is non-toxic appearing and is in no distress.? Patient is appropriate for outpatient treatment and follow-up. Differential Diagnosis Differential diagnosis: Likely urinary tract infection, cystitis and other (dysuria, low back and suprapubic pain) Lab Data Attestation: I reviewed the patient's lab results. Lab results narrative: Urine dip: Glucose negative, bilirubin negative, ketones negative, specific gravity 1.015 blood negative pH 7.0 protein trace urobilinogen 0.2 nitrite positive, leukocyte 1+ Labs: Lab Results 12/30/24 Range/Units 18:47 POC Urine Color Dark POC Urine Clarity Cloudy POC Urine pH 7.0 POC Ur Specif [place] 1.015 POC Urine Protein Trace (Negative) POC Ur Glucose (UA) Negative (Negative) POC Urine Ketones Negative (Negative) POC Urine Blood Negative (Negative) POC Urine Nitrite Positive (Negative) POC Urine Bilirubin Negative (Negative) POC Urine Urobilinogen 0.2 POC U Leukocyte Esteras 1+ (Negative) reviewed Critical Care Time Critical Care Time Critical Care Time: No Discharge Plan Discharge Clinical Impression: Urinary tract infection Qualifiers: Urinary tract infection type: site unspecified Hematuria presence: without hematuria Qualified Code(s): N39.0 - Urinary tract infection, site not specified Nausea & vomiting Qualifiers: Vomiting type: unspecified Qualified Code(s): R11.2 - Nausea with vomiting, unspecified Abdominal pain Qualifiers: Abdominal location: suprapubic Qualified Code(s): R10.24 - Suprapubic pain Patient Disposition: Home Condition: Stable Instructions: Antibiotic Form, Urinary Tract Infection in Women (ED), Acute Nausea and Vomiting (ED) Additional Instructions: Increase fluids especially cranberry juice and water Avoid caffeine and carbonated beverages Antibiotic as directed Medicine as directed--cautioned it will cause your urine to be bright orange Tylenol/ibuprofen for pain or fever Follow-up with her primary care provider if further problems or concerns Recheck if you have fever over 101, nausea and vomiting. Medication for nausea and vomiting take as prescribed Pain medication as prescribed Call your urologist in the morning for follow up If your symptoms persist, change or worsen significantly before you can contact your personal physician then please, without delay, go to the emergency department for further evaluation. Follow-up with PCP in 7-10 days or sooner if needed Patient Language: Filipino Prescriptions: New ondansetron 4 mg tablet,disintegrating 4 mg PO Q6H PRN (Reason: nausea and vomiting) Qty: 20 0RF Rx Instructions: what ever preparation is covered by insurance amoxicillin-pot clavulanate 875-125 mg tablet 1 tablet PO Q12H Qty: 20 0RF Rx Instructions: take with food and recommend taking probiotic while taking this medication hydrocodone-acetaminophen 2.5-325 mg tablet 1 tablet PO Q6H PRN (Reason: pain) Qty: 10 0RF Follow-up/Referrals: PHYSICIAN,BIODIESEL PRODUCT MANAGER [Primary Care Provider, Internal Medicine] Time of Disposition: 19:11 Quality Kelvin Coma Scale Eyes: Open Verbal: Oriented and Alert Motor: Follows Commands Kelvin Coma Total Score: 15
[2024-12-30 18:50] LABS: EDUAAPPEAR Cloudy; EDUABILI Negative (Negative); EDUABLOOD Negative (Negative); EDUACOLOR1 Dark; EDUAGLUCOSE Negative (Negative); EDUAKETONE Negative (Negative); EDUALEUKO 1+ (Negative); EDUANITRATE Positive (Negative); EDUAPH 7.0; EDUAPROTEIN Trace (Negative); EDUASPGRAVITY 1.015; EDUAUROBILI 0.2
== END 2024-12-30 19:20 | disposition home or self-care (01) ==
PROVIDERS: Emergency Provider Registered Nurse
DX: N39.0 Urinary tract infection, site not specified (principal); R11.2 Nausea with vomiting, unspecified; R10.24 Suprapubic pain
CPT/HCPCS: 81003; 87077; 87086; 87186; 99213; G0463

== ENCOUNTER 2025-01-26 19:13 | Emergency (ER) | payer BC, SELFPAY ==
--- NOTE | 2025-01-26 19:17 | ED.GENADULT ---
HPI - General Adult General Chief complaint: Urogenital-Female Stated complaint: lower back pain/chills/fever Source: patient Mode of arrival: ambulatory Limitations: no limitations History of Present Illness HPI narrative: Pt is a 39 y/o female presenting with c/o atraumatic lower back pain. Additional sx reported include dysuria, chills, tactile fever. Sx began on Friday. Hx of similar when dx with UTI. No concern for STI or . No tx initiated VP SITE. NO additional complaints. Related Data Allergies Allergy/AdvReac Type Severity Reaction Status Date / Time No Known Allergies Allergy Verified 01/26/25 19:18 Review of Systems Review of Systems: CONSTITUTIONAL: reports tactile fever, chills, denies body aches or sweats. EYES: Denies visual changes, redness, or discharge. ENT: Denies rhinorrhea, congestion, sore throat, or otalgia. CARDIOVASCULAR: Denies chest pain, palpitations, or edema. RESPIRATORY: Denies cough or dyspnea. GASTROINTESTINAL: Denies abdominal pain, nausea, vomiting, or diarrhea. GENITOURINARY: Reports dysuria denies hematuria. SKIN: Denies rash, itching, or wounds. MUSCULOSKELETAL: Denies back pain, joint pain, or myalgia. NEUROLOGIC: Denies headache, numbness, tingling, or weakness. PSYCH: Denies depression or anxiety. All systems reviewed & are unremarkable except as noted in HPI and below PMFSH Past Medical History Medical History Urinary tract infection Right trigeminal neuralgia Anemia affecting (~10/2022) Pyelonephritis (~2021) Kidney abscess (~2021) Surgical History Surgical History Hx of drainage of abscess (~12/2021) percutaneous drainage of right kidney abscess (normal spontaneous vaginal delivery) 2010 full-term demise History of section, low transverse x3 - 2012, 2012, 2017, 2022 1 set of twins Family History Family History Father Cerebrovascular accident Grandparent Cerebrovascular accident Other No pertinent family history Social History Social History (Reviewed 12/30/24 @ 20:03 by HENRY Duarte Social History: Palmira is , she has 5 children ages 12 to 1. Smoking status: Never smoker Second hand tobacco smoke exposure: No Alcohol intake: never Substance use: never Do You Feel Safe in your Home?: Yes Lack of Transportation: No Lack of Food: Never True Current Housing: I Have Housing Concerned About Future Housing: No Difficulty Paying Gas/Electric Bills: No Difficulty Paying for Meds: No Currently Unemployed: No Education: Master's Degree or Higher Difficulty w/ Childcare or Family Care: No Living arrangements: with family Gender identity (if verbalized by the patient): Female Spiritual care concerns: No Exam Narrative: GENERAL: Well-appearing, well-nourished, uncomfortable,+rigorous HEAD: Normocephalic, atraumatic. EYES: EOMI. ENT: Mucous membranes pink and moist. NECK: Normal AROM. Supple. CHEST: No respiratory distress. Clear to auscultation. HEART: Regular rate and rhythm. No murmur appreciated. Normal peripheral pulses. ABDOMEN: Soft, nontender, nondistended, normal active bowel sounds. bilateral CVAT left greater than right SKIN: Warm, dry, no rash. Capillary refill normal. Normal skin turgor. NEURO: No focal deficits. Alert and oriented x3. Gait steady. PSYCH: Normal affect. No signs of depression or anxiety. Course Course Level of Care: Express Care Visit Vital Signs Vital signs: Vital Signs Temperature 100.8 F H 01/26/25 19:22 Pulse Rate 97 01/26/25 19:22 Respiratory Rate 20 01/26/25 19:22 Blood Pressure 124/37 L 01/26/25 19:22 Pulse Oximetry 98 01/26/25 19:22 Oxygen Delivery Room Air 01/26/25 19:22 Temperature 100.8 F H 01/26/25 19:22 Pulse Rate 97 01/26/25 19:22 Respiratory Rate 20 01/26/25 19:22 Blood Pressure 124/37 L 01/26/25 19:22 Pulse Oximetry 98 01/26/25 19:22 Oxygen Delivery Room Air 01/26/25 19:22 Transfer Transfered to: [facility] Transportation: Other (POV) Transfer rationale: access to higher level of care/further diagnostic work up Accepting physician: Rosalio Transfer comments: Report to TERRIE Negron Medical Decision Making MDM Narrative Medical decision making narrative: manual BP 128/78 Given the patient's reported sx, physical exam findings, PMH, I recommended she transferred to ER for further diagnostic work up. Pt agreed to be transferred and requested to be transferred to [facility] as that is where her urologist is located. Pt is aware that she should go straight to ER, remain NPO until instructed otherwise. Pt's will transport via private vehicle. Vital Signs Vital Signs: Vital Signs Temperature 100.8 F H 01/26/25 19:22 Pulse Rate 97 01/26/25 19:22 Respiratory Rate 20 01/26/25 19:22 Blood Pressure 124/37 L 01/26/25 19:22 Pulse Oximetry 98 01/26/25 19:22 Oxygen Delivery Room Air 01/26/25 19:22 Temperature 100.8 F H 01/26/25 19:22 Pulse Rate 97 01/26/25 19:22 Respiratory Rate 20 01/26/25 19:22 Blood Pressure 124/37 L 01/26/25 19:22 Pulse Oximetry 98 01/26/25 19:22 Oxygen Delivery Room Air 01/26/25 19:22 Lab Data Lab results reviewed: Yes I reviewed the patient's lab results. Labs: Lab Results 01/26/25 Range/Units 19:24 POC Urine Color Yellow POC Urine Clarity Cloudy POC Urine pH 8.5 POC Ur Specif [place] 1.020 POC Urine Protein 2+ (Negative) POC Ur Glucose (UA) Negative (Negative) POC Urine Ketones Negative (Negative) POC Urine Blood 2+ (Negative) POC Urine Nitrite Positive (Negative) POC Urine Bilirubin Negative (Negative) POC Urine Urobilinogen 0.2 POC U Leukocyte Esteras 3+ (Negative) Discharge Plan Discharge Clinical Impression: Dysuria, Chills, Bilateral costovertebral angle tenderness Fever Qualifiers: Fever type: unspecified Qualified Code(s): R50.9 - Fever, unspecified Patient Disposition: Acute Care Hospital Condition: Stable Patient Language: Turkmen Follow-up/Referrals: Agnes Matias MD [Primary Care Provider, Family Practice] Time of Disposition: 19:40
[2025-01-26 19:22] VITALS: BP 124/37; PULSE 97; RESP 20; TEMP 38.2; O2SAT 98
[2025-01-26 19:29] LABS: EDUAAPPEAR Cloudy; EDUABILI Negative (Negative); EDUABLOOD 2+ (Negative); EDUACOLOR1 Yellow; EDUAGLUCOSE Negative (Negative); EDUAKETONE Negative (Negative); EDUALEUKO 3+ (Negative); EDUANITRATE Positive (Negative); EDUAPH 8.5; EDUAPROTEIN 2+ (Negative); EDUASPGRAVITY 1.020; EDUAUROBILI 0.2
[2025-01-26] MEDS: ACETAMINOPHEN 500 MG TABLET 1000 MG PO (19:38)
== END 2025-01-26 19:40 | disposition short-term general hospital (02) ==
PROVIDERS: Emergency Provider Registered Nurse; PCP Family Medicine
DX: R30.0 Dysuria (principal); R39.853 Costovertebral (angle) tenderness, bilateral; R50.9 Fever, unspecified
CPT/HCPCS: 81003; 99212; A9270; G0463

== ENCOUNTER 2025-02-07 08:57 | Outpatient (CLI) | payer BC, SELFPAY ==
--- OUTSIDE RECORDS SUMMARY | 2025-02-07 09:35 | XMS_ITS | Clinical Summary ---
Author Organization [facility] Address [address] [place] [address] Phone Care Team Providers Care Sterile Process Tech Name Role Phone Unavailable Primary Care Provider Unavailabl e Social History Tobacco Use Types Packs/Day Years Used Date Smoking Tobacco: Never Assessed Comments Unknown Sex and Gender Information Value Date Recorded Sex Assigned at Not on file Legal Sex Female 11:23 AM CDT Gender Identity Not on file Sexual Orientation Not on file Plan of Treatment Health Maintenance Due Date Last Done Comments DTAP/TDAP/TD VACCINES (1 - Tdap) 2006 HEPATITIS B VACCINES (1 of 3 - 19+ 3-dose series) 02/09 HPV/Cotest (21-29) 2008 HPV VACCINES (1 - 3-dose SCDM series) 2014 CERVICAL CANCER SCREENING 2017 HPV/Cotest (30-65) 2017 PAP SMEAR 2017 INFLUENZA VACCINE (#1) 2024 [place] [address] [place]
--- OUTSIDE RECORDS SUMMARY | 2025-02-07 09:35 | XMS_ITS | Clinical Summary ---
Author Organization [facility] [employer] Address [address] [place] [address] Care Team Providers Care Travel Guide Name Role Phone Unavailable Primary Care Provider Unavailabl e Source Comments [facility] [employer],non-owned Affiliates and Associated Physician Practices is amultiple site organization consisting of ambulatory clinics and hospital sitesin [place], [place], [place] and [place]. This disclosure is being madepursuant to the Care Everywhere program and may not contain all information available regarding this patient. Last updated 17.[facility] [employer] Allergies No known active allergies Medications * Be aware that medications may not be up to date on this document. Alwaysverify current medications with the patient. ferrous gluconate 324 (38 FE) MG tablet Take 324 mg by mouth 2 times daily with morning and evening meal Active oxyCODONE-aceta minophen (PERCOCET) 5-325 MG tablet Take 1-2 tablets by mouth every 4 hours as needed for Pain 20 tablet 12/08/2017 Active ibuprofen (MOTRIN) 600 MG tablet Take 1 tablet by mouth every 6 hours as needed for Pain 60 tablet 2 12/08/2017 Active docusate sodium (COLACE) 100 MG capsule Take 1 capsule by mouth 2 times daily 60 capsule 2 12/08/2017 Active Vit-Fe Fumarate-FA ( VITAMIN) 28-0.8 MG tablet Take 1 tablet by mouth once daily 30 tablet 5 12/18/2017 Active Active Problems Problem Noted Date Diagnosed Date Diet controlled gestational diabetes mellitus (GDM) in third trimester 10/14/2017 Overview (10/29/2017): GCT 152 (09/30/2017) GTT on 10/07/2017- 79/184/171/97 Depression screen - initial 09/01/17 09/01/2017 Overview (12/01/2017): 09/01/2017 Palmira Hou was screened for depression using the [place] Depression Scale (EPDS) at her [facility] initial evaluation on 09/01/2017. Her initial score at baseline was 0. Based off of her score of 0, Palmira does not warrant follow up. Patient will continue to be screened throughout , at intervals no closer than two weeks, for continued surveillance and early identification of depression until delivery. Patient denies mental health history. 8.27.18 follow up EPDS- 0 9.24.18 follow up EPDS- 0 Previous stillbirth or demise, antepartum - full term 09/01/2017 Overview (12/10/2017): Stillbirth in [place]. Complained of thick yellow-green discharge at the time of diagnosed demise. Placental Records reviewed (2010): 3rd trimester placenta, weight 390 gram, acute chorioamnionitis and funisitis, meconium staining, marginal cord insertion (1 centimeter), no significant adherent blood clot noted. Plan: Weekly biophysical profile starting at 30 weeks abnormality in previou s - Twins, both renal abnormalities 08/26/2017 Overview (12/01/2017): Images from the original note were not included. [facility] PATIENT--PLEASE CALL [phone] (ex 2) IF TRIAGED OR ADMITTED Care Provider: Dr. Carr (OB), [facility] consultants involved: RN-Leona/Trevin; [facility]- Rodríguez; Urology-Micah; Nephrology- Chito Diagnosis: Twin A: MCDK; Twin B: UTD A2-3 (normal AFV for both babies) follow up (Duel 09/01): Bilateral Grade II or III Hydronephrosis, with normal GISELE during & no other anomalies: a. Ok to deliver at hospital of parents' choosing b. Strict I/O s during hospital stay c. Monitor blood pressure during hospital stay d. 48 hours of life obtain lytes and creatinine e. Start prophylactic Amoxicillin 20 mg/kg PO daily f. [facility]- Schedule renal ultrasound at 48 hours of life- Please use Dr. Olman Obrien as the ordering physician g. Other facility- Parent to schedule a renal ultrasound, [facility] & follow up appointment within two weeks by calling Naida Mcgee, clinical nurse, at [phone] h. Ok to circumcise male infant with normal urethral meatus Outsole Cutter Machine: Undecided as of 11.05.17 Planned surveillance: Weekly testing at [facility], Returning to [facility] 12.01 Delivery location, mode, and GA: [facility], c/s . at 10:30 AM Autopsy indicated: Genetics note: Form Coverer Concerns: 11/03/17- Patient with a term demise in 2010 Care plan based on evaluation and is subject to change based on assessment. See Images or Cardiac under Chart Review for US/ ECHO/ MRI reports. complicated by abnormality Supervision of high-risk of lena nieto 08/14/2017 Overview (08/14/2017): Dating: LMP of 03/19/17 consistent with 12w5d u/s (twin A) 12w6d u/s (twin B), within 6 and 7 days of LMP giving GALINA--->12/24/17 Lab summary from 05/26/17 A+/Imm/-/- HIV NR Antibody screen: negative CT/GC: negative Hemoglobin electrophoresis: normal TSH: 0.011, free T4 1.41 Pap: NILM, negative HPV (05/26/17) NIPT: pending from 08/05/17 Dichorionic diamniotic twin in third t rimester 07/22/2017 Overview (11/26/2017): Delivery recommended at [address] Ramsey History of delivery 07/18/2017 Overview (11/26/2017): Two previous deliveries Resolved Problems Problem Noted Date Diagnosed Date Resolved Date Abnormal [place] glucose challenge test, antepartum 10/03/2017 10/29/2017 UTI (urinary tract infection ) during 08/14/2017 10/29/2017 Overview (08/14/2017): 05/26/17, treated w/Macrobid per PN record Echogenic intracardiac focus of fetus on ultrasound 07/22/2017 10/29/2017 Immunizations Immunization Administration Dates Next Due INFLUENZA VACCINE, QUADR. (F LUZONE; FLULAVAL; FLUARIX; AFLURIA QUADRIVALENT; 6MO+), 0.5 ML (IIV4) 12/08/2017 TDAP (7yrs+) 10/08/2017 Family History Medical History Relation Name Comments Hypertension Father Relation Name Status Comments Father Social History Tobacco Use Types Packs/Day Years Used Date Smoking Tobacco: Never Alcohol Use Standard Drinks/Week Comments Yes 0 (1 standard drink = 0.6 oz pur e alcohol) social prior to Comments No Sex and Gender Information Value Date Recorded Sex Assigned at Not on file Legal Sex Female 2:19 PM CDT Gender Identity Not on file Sexual Orientation Not on file Last Filed Vital Signs Vital Sign Reading Time Taken Comments Blood Pressure 117/81 12/18/2017 10:41 AM CDT Pulse 71 12/18/2017 10:41 AM CDT Temperature 36.7 C (98.1 F) 12/08/2017 5:25 PM CDT Respiratory Rate 18 12/08/2017 5:25 PM CDT Oxygen Saturation 100% 12/08/2017 10:00 AM CDT Inhaled Oxygen Concentration - - Weight 67.6 kg (149 lb) 12/18/2017 10:41 AM CDT Height 157.5 cm (5' 2) 12/05/2017 11:55 AM CDT Body Mass Index 27.25 12/05/2017 11:55 AM CDT Plan of Treatment Health Maintenance Due Date Last Done Comments HIV SCREENING 2002 HEPATITIS C SCREENING 03/04/2005 HEPATITIS B VACCINE (1 of 3 - 19+ 3-dose series) 2006 PAP SMEAR 2008 HPV VACCINE (1 - 3-dose SCDM series) 2014 Cervical Cancer Screening 2017 PAP with HPV 2017 DEPRESSION SCREENING 03/10/2024 COVID-19 VACCINE ( - 2024-2 6 season) 2024 INFLUENZA VACCINE (#1) 2024 12/08/2017 DTAP/TDAP/TD VACCINES (2 - T d or Tdap) 10/09/2027 10/08/2017 ZOSTER VACCINE (1 of 2) 2037 HIB VACCINE Aged Out No longer eligi ble based on patient's age to complete this topic MENINGOCOCCAL (Group B) VACC INE SHARED DECISION-MAKING Aged Out No longer eligibl e based on patient's age to complete this topic MENINGOCOCCAL GROUPS A/C/Y/W VACCINE Aged Out No longer eligible b ased on patient's age to complete this topic PNEUMOCOCCAL VACCINE Aged Out No long er eligible based on patient's age to complete this topic Insurance [address] [place] [address] Advance Directives * Full Code (Latest Code Status on File) Date Activated Date Inactivated Comments 12/04/2017 10:11 AM 12/08/2017 8:03 PM
[2025-02-07 19:41] LABS: Add Urine Microscopic? YES; Appearance Urine Cloudy (Clear); Glucose Urine UA Negative (Negative); Leukocyte Esterase Ur 2+ LEU/UL (Negative); Nitrate Urine Positive (Negative); Non Pathogenic Casts 0-2; Specific Grav Ur 1.017 (1.001-1.035)
[2025-02-07 19:59] LABS: Alanine Aminotransferase 17 U/L (6-35); Albumin Level 4.2 g/dL (3.5-5.1); Alkaline Phosphatase 49 U/L (38-126); Anion Gap 5 mmol/L (4-12); Aspartate Amino Transferase 61 U/L (14-36); Bilirubin,Total 0.2 mg/dL (0.2-1.3); Blood Urea Nitrogen 13 mg/dL (7-17); Calcium 8.9 mg/dL (8.4-10.2); Carbon Dioxide 27 mmol/L (22-30); Chloride 107 mmol/L (98-107); Estimated Glomerular Filt Rate > 60; Glucose 84 mg/dL (65-110); Potassium 4.0 mmol/L (3.4-5.0); Sodium 139 mmol/L (137-145); Total Protein 7.8 g/dL (6.3-8.2)
== END 2025-02-07 08:58 | disposition home or self-care (01) ==
PROVIDERS: PCP Family Medicine; Visit Provider Family Medicine
DX: N39.0 Urinary tract infection, site not specified (principal); N12 Tubulo-interstitial nephritis, not specified as acute or chronic
CPT/HCPCS: 36415; 80053; 81001; 87086; 87186

== ENCOUNTER 2025-02-17 13:42 | Outpatient (CLI) | payer BC, SELFPAY ==
--- NOTE | ~2025-02-17 | US_ITS ---
EXAM/PROCEDURE: US pelvic complete w TV HISTORY: leiomyoma of uterus COMPARISON: August 20, 2022 TECHNIQUE: Pelvic ultrasound LMP: January 29, 2025 FINDINGS: The uterus measures 9.1 x 5.0 x 6.6 cm Endometrial stripe: 6.3 mm Myometrium in the lower uterine segment and at the level scar noted with small amount of fluid present. No discrete fibroid. Right ovary: 2.5 x 0.8 x 2.2 cm Left ovary: 2.6 x 1.2 x 2.5 cm. Both ovaries appear normal in echotexture and vascular flow. No free fluid seen. IMPRESSION: 1. No discrete fibroid seen. 2. Abnormal appearance of the endometrial canal in the lower uterine segment corresponding to area of scar, probably representing benign postsurgical changes of the uterus. Visualized portions of the endometrial stripe are normal in thickness. Correlate clinically as in the setting of infection and acute presentation of pain, endometritis could potentially have similar appearance. COMMENT: If there is concern for clinically significant fibroids or concern for more definitive evaluation of the uterus and endometrial contents, correlation with pelvic MRI with uterine protocol would provide optimal evaluation. Reviewed, dictated and finalized at location A. [employer] IMPRESSION: 1. No discrete fibroid seen. 2. Abnormal appearance of the endometrial canal in the lower uterine segment co rresponding to area of scar, probably representing benign postsurgica l changes of the uterus. Visualized portions of the endometrial stripe are norm al in thickness. Correlate clinically as in the setting of infection and acute presentation of pain, endometritis could potentially have similar appearance. COMMENT: If there is concern for clinically significant fibroids or concern for more definitive evaluation of the uterus and endometrial contents, correlation with pelvic MRI with uterine protocol would provide optimal evaluation.
== END 2025-02-17 13:43 | disposition home or self-care (01) ==
PROVIDERS: PCP Family Medicine; Visit Provider Obstetrics & Gynecology Gynecology
DX: D25.9 Leiomyoma of uterus, unspecified (principal)
CPT/HCPCS: 76830; 76856